=== PATIENT | male | born 1985 | race Caucasian/White ===

== ENCOUNTER 2020-01-05 10:43 | Emergency (ER) | payer OTHER, SELFPAY ==
--- NOTE | ~2020-01-05 | XR_ITS ---
EXAMINATION: XR chest 2V EXAM DATE: 01/05/2020 11:16 INDICATION: Upper left chest pain. TECHNIQUE: Frontal and lateral projections of the chest obtained and reviewed. Comparison is made to prior examination from 11/26/2019. FINDINGS: There is left midlung zone granuloma. The lungs are otherwise clear. There are no pleural effusions. The cardiomediastinal silhouette is within normal limits. There is no pneumothorax susp ected. The bones and soft tissues are unremarkable. IMPRESSION: No acute cardiopulmonary findings. Reviewed, dictated and finalized at location A. DESIGN ENGINEER
--- NOTE | 2020-01-05 10:57 | ED.CHESTPAIN ---
HPI - Chest Pain General Chief Complaint: Chest Pain Stated Complaint: chest pain Time Seen by Provider: 01/05/20 10:55 Source: patient and RN notes reviewed Mode of arrival: other Limitations: no limitations History of Present Illness HPI narrative: Pt is a 34 y/o male who presents to the ED with c/o 7/10 left sided chest pain that radiates to his left arm. Pt states his pain began at 8:30 AM today after packing some boxes at his job at [employer]. Pt describes his pain as achy and sharp. Pt notes that he started Vraylar 3 mg yesterday. He states that his boss recommended to come to the ED for further evaluation. Pt denies taking medication for his pain. He notes that he has a hx of an abnormal EKG. Pt also reports dizziness, chills, and diaphoresis, but denies SOB. MD complaint: chest pain Onset (ago): hour(s) (2) Timing of current episode: still present Onset: during exertion (packing boxes) Pain location: left chest Pain radiation: left arm Severity: moderate Pain scale (0-10): 7 Quality: aching and sharp Relieving factors: nothing Context: new medications Associated symptoms: diaphoresis and other (dizziness, chills) Treatment prior to arrival: none Related Data Home Medications Medication Instructions Recorded Confirmed bupropion HCl [Wellbutrin XL] 150 mg PO QAM 01/05/20 01/05/20 bupropion HCl [Wellbutrin XL] 300 mg PO QAM 01/05/20 01/05/20 clonazepam 01/05/20 dabigatran etexilate [Pradaxa] 150 mg PO BID 01/05/20 01/05/20 duloxetine 60 mg PO BID 01/05/20 01/05/20 esvvjtmgga-pnogooxz-fmhbkh ala 1 tablet PO DAILY 01/05/20 01/05/20 [Odefsey] montelukast [Singulair] mg 01/05/20 valproic acid 750 mg PO Q12H 01/05/20 Allergies Allergy/AdvReac Type Severity Reaction Status Date / Time No Known Allergies Allergy Unverified 11/26/19 08:13 Review of Systems Review of Systems: All systems reviewed & are unremarkable except as noted in HPI and below Constitutional: Constitutional: Reports chills Cardiovascular: Cardiovascular: Reports chest pain (left, radiates to left arm) and Reports diaphoresis Respiratory: Respiratory: Denies dyspnea Neurologic: Reports dizziness [facility] Past Medical History Medical History (Updated 01/06/20 @ 00:00 by Gonzalez De Souza) Abdominal cyst Abnormal ECG Abnormal echocardiogram Abnormal stress test Anxiety Cellulitis left leg Depression Diverticulitis DVT (deep venous thrombosis) GERD (gastroesophageal reflux disease) Hand fracture, right HIV (human immunodeficiency virus infection) Migraines Pneumonia Pulmonary embolism right lung Seizures Surgical History Surgical History (Updated 01/05/20 @ 11:12 by Daisy Huang) History of hand surgery right Social History Social History (Updated 01/05/20 @ 11:13 by Daisy Huang) Smoking packs per day: 0.5 Smoking cigarettes per day: 10.0 Smoking status: Current every day smoker Tobacco type: cigarettes Alcohol intake: current Substance use: former Substance use type: marijuana, crack/cocaine and methamphetamine Gender identity (if verbalized by the patient): Male Exam Const: General: no acute distress and well developed Orientation/consciousness: oriented to person, oriented to place, oriented to time and patient oriented x3 HENMT: Head: normocephalic Ears: external ears normal General nose exam: Normal external nose present Eyes: General: appearance normal, both eyes and all related structures Conjunctivae: conjunctivae normal Neck: Neck: normal visual inspection and full ROM Chest: Chest palpation & inspection: normal inspection of the chest and no tenderness Resp: Effort & Inspection: normal respiratory effort Auscultation: clear to auscultation bilaterally Cardio: Rate: regular rate Rhythm: regular rhythm GI: GI Palp: No abdominal tenderness and Yes Soft to palpation Skin: General skin exam: normal color and turgor normal Neuro: General: oriented to person, orie
[2020-01-05 11:02] VITALS: BP 131/80; PULSE 95; RESP 16; TEMP 36.3; O2SAT 97
--- NOTE | 2020-01-05 11:04 | ECG_ITS ---
Measurements Intervals [place] Rate: 85 P: 48 SC: 157 QRS: -25 QRSD: 106 T: 28 QT: 342 QTc: 408 Interpretive Statements SINUS RHYTHM NORMAL ECG Electronically Signed On 01-05-2020 12:38:13 PRODUCTION LEAD by Jamshid Barreto D.O.
[2020-01-05 11:06] VITALS: PULSE 95
[2020-01-05 11:22] LABS: Basophils Percent Auto 0.4 % (0.2-1.2); Eosinophils Absolute Auto 0.2 K/mm3 (0-0.3); Eosinophils Percent Auto 2.3 % (0-4.4); Hematocrit 50.8 % (42.0-52.0); Hemoglobin 16.8 g/dL (14.0-18.0); Immature Granulocyte Absolute 0.08 K/mm3 (0.00-0.031); Immature Granulocyte Percent A 0.9 % (0-0.5); Lymphocytes Percent Auto 36.6 % (18.3-44.2); Mean Corpuscular HGB Conc 33.1 g/dl (32-36); Mean Corpuscular Hemoglobin 32.5 pg (26-34); Mean Corpuscular Volume 98.3 fl (80-100); Monocytes Absolute Auto 0.8 K/mm3 (0.1-0.6); Monocytes Percent Auto 8.7 % (2.6-8.5); Neutrophils Absolute Auto 4.7 K/mm3 (1.3-6.7); Neutrophils Percent Auto 51.1 % (45.5-73.1); Platelet Count Result 257 k/mm3 (150-375); Red Blood Count 5.17 M/mm3 (4.6-6.20); Red Cell Distribution Width 13.4 % (11.5-14.5); White Blood Count 9.3 K/mm3 (4.5-10.0)
[2020-01-05 11:34] LABS: Alanine Aminotransferase 28 U/L (4-50); Albumin Level 4.9 g/dL (3.5-5.1); Alkaline Phosphatase 76 U/L (38-126); Aspartate Amino Transferase 34 U/L (17-59); Bilirubin,Total 0.6 mg/dL (0.2-1.3); Blood Urea Nitrogen 16 mg/dL (9-20); Carbon Dioxide 27 mmol/L (22-30); Chloride 98 mmol/L (98-107); Estimated CRCL calculation 113 ml/min; Estimated Glomerular Filt Rate 58; Glucose 89 mg/dL (75-110); Potassium 4.9 mmol/L (3.4-5.0); Sodium 141 mmol/L (137-145)
[2020-01-05 11:46] LABS: Troponin I < 0.012 ng/mL (0.000-0.034)
[2020-01-05 12:24] LABS: D Dimer 0.27 ug/mL (<0.48)
[2020-01-05 14:34] VITALS: BP 124/70; PULSE 76; RESP 16; O2SAT 97
--- NOTE | 2020-01-05 14:35 | PC.NURSE ---
pt states left sided cp is 0.5/10. states feels much better. requesting some psychiatric referrals upon discharge.
[2020-01-05 14:47] LABS: Troponin I < 0.012 ng/mL (0.000-0.034)
== END 2020-01-05 15:50 | disposition home or self-care (01) ==
PROVIDERS: Emergency Provider Emergency Medicine
DX: R07.9 Chest pain, unspecified (principal); F17.210 Nicotine dependence, cigarettes, uncomplicated; F41.9 Anxiety disorder, unspecified; F32.9 Major depressive disorder, single episode, unspecified; Z86.718 Personal history of other venous thrombosis and embolism; K21.9 Gastro-esophageal reflux disease without esophagitis; Z21 Asymptomatic human immunodeficiency virus [HIV] infection status; Z86.711 Personal history of pulmonary embolism
CPT/HCPCS: 36415; 71046; 80053; 84484; 85025; 85380; 93005; 99284

== ENCOUNTER 2020-02-18 19:01 | Emergency (ER) | payer BC, OTHER, SELFPAY ==
--- NOTE | ~2020-02-18 | XR_ITS ---
EXAMINATION: XR chest 2V EXAM DATE: 02/18/2020 19:39 INDICATION: Shortness of breath, pain right mid back. History pulmonary embolism. TECHNIQUE: Frontal and lateral projections of the chest obtained and reviewed. Comparison is made to prior examination from 01/05/2020. FINDINGS: There is left midlung zone granuloma. The lungs are otherwise clear. There are no pleural effusions. The cardiomediastinal silhouette is within normal limits. There is no pneumothorax susp ected. The bones and soft tissues are unremarkable. IMPRESSION: No acute cardiopulmonary findings. Reviewed, dictated and finalized at location A.
[2020-02-18 19:05] VITALS: BP 143/79; PULSE 79; RESP 18; TEMP 37; O2SAT 99
--- NOTE | 2020-02-18 19:06 | ECG_ITS ---
Measurements Intervals [place] Rate: 77 P: 20 UT: 147 QRS: -19 QRSD: 106 T: 20 QT: 363 QTc: 412 Interpretive Statements SINUS RHYTHM DELAYED PRECORDIAL R/S TRANSITION VOLTAGE CRITERIA FOR LVH ST ELEVATION IN DIFFUSE LEADS- PROBABLY EARLY REPOLARIZATION BASELINE ARTIFACT- I, III, AVR, AVL BORDERLINE ECG Electronically Signed On 02-18-2020 20:07:26 CDT by Jamshid Barreto D.O.
[2020-02-18 19:27] LABS: Basophils Percent Auto 0.4 % (0.2-1.2); Eosinophils Absolute Auto 0.2 K/mm3 (0-0.3); Hematocrit 48.9 % (42.0-52.0); Hemoglobin 15.8 g/dL (14.0-18.0); Immature Granulocyte Absolute 0.04 K/mm3 (0.00-0.031); Immature Granulocyte Percent A 0.5 % (0-0.5); Lymphocytes Absolute Auto 3.06 K/mm3 (0.9-3.2); Lymphocytes Percent Auto 39.9 % (18.3-44.2); Mean Corpuscular HGB Conc 32.3 g/dl (32-36); Mean Corpuscular Hemoglobin 32.6 pg (26-34); Mean Platelet Volume 11.1 fl (7.4-10.4); Monocytes Absolute Auto 0.6 K/mm3 (0.1-0.6); Monocytes Percent Auto 8.4 % (2.6-8.5); Neutrophils Absolute Auto 3.7 K/mm3 (1.3-6.7); Neutrophils Percent Auto 48.8 % (45.5-73.1); Platelet Count Result 239 k/mm3 (150-375); Red Blood Count 4.84 M/mm3 (4.6-6.20); Red Cell Distribution Width 13.2 % (11.5-14.5); White Blood Count 7.7 K/mm3 (4.5-10.0)
--- NOTE | 2020-02-18 19:37 | ED.BACK ---
HPI - Back Pain/Injury General Chief Complaint: Back Pain/Injury Stated Complaint: sob/pmh dvt/pe Time Seen by Provider: 02/18/20 19:06 Source: patient Mode of arrival: ambulatory Limitations: no limitations History of Present Illness HPI Narrative: This is a 34 year old male that presents to the ER for shortness of breath. Reports sudden onset this afternoon. Reports worse with exertion. Reports a history of PE. Reports pain in his right mid back that is worse with breathing. Also reports an episode of vomiting and diarrhea. Reports a productive cough that is chronic for him due to smoking. Denies fever, abdominal pain, dysuria or hematuria. Related Data Home Medications Medication Instructions Recorded Confirmed bupropion HCl [Wellbutrin XL] 150 mg PO QAM 01/05/20 02/18/20 bupropion HCl [Wellbutrin XL] 300 mg PO QAM 01/05/20 01/05/20 clonazepam 01/05/20 duloxetine 60 mg PO BID 01/05/20 01/05/20 zdazpxljta-geijisct-omycxo ala 1 tablet PO DAILY 01/05/20 01/05/20 [Odefsey] montelukast [Singulair] mg 01/05/20 valproic acid 750 mg PO Q12H 01/05/20 dabigatran etexilate [Pradaxa] mg PO 02/18/20 Allergies Allergy/AdvReac Type Severity Reaction Status Date / Time No Known Allergies Allergy Verified 02/18/20 19:11 Review of Systems Review of Systems: Narrative: CONSTITUTIONAL: Denies fever ENT: Denies rhinorrhea, congestion, sore throat CARDIOVASCULAR: Reports chest pain, and edema. RESPIRATORY: Reports cough and dyspnea. GASTROINTESTINAL: Reports nausea, vomiting and diarrhea. Denies abdominal pain. GENITOURINARY: Denies dysuria or hematuria. All systems reviewed & are unremarkable except as noted in HPI and below PMFSH Past Medical History Medical History (Updated 02/18/20 @ 21:29 by Marley Benitez PA-C) Abdominal cyst Abnormal ECG Abnormal echocardiogram Abnormal stress test Anxiety Cellulitis left leg Depression Diverticulitis DVT (deep venous thrombosis) GERD (gastroesophageal reflux disease) Hand fracture, right HIV (human immunodeficiency virus infection) Migraines Pneumonia Pulmonary embolism right lung Seizures Surgical History Surgical History (Updated 01/05/20 @ 11:12 by Daisy Huang) History of hand surgery right Social History Social History (Updated 01/05/20 @ 11:13 by Daisy Huang) Smoking packs per day: 0.5 Smoking cigarettes per day: 10.0 Smoking status: Current every day smoker Tobacco type: cigarettes Alcohol intake: current Substance use: former Substance use type: marijuana, crack/cocaine and methamphetamine Gender identity (if verbalized by the patient): Male Exam Narrative: Exam Narrative: GENERAL: Well-appearing, well-nourished, and in no acute distress. HEAD: Normocephalic, atraumatic. EYES: EOMI. ENT: Nares clear, no rhinorrhea or epistaxis. Mucous membranes moist. Oropharynx without tonsillar hypertrophy exudate or other lesions. Bilateral TMs pearly palomo non-bulging NECK: Supple. No adenopathy or masses. CHEST: Clear to auscultation. No respiratory distress. No wheezes rales or rhonchi. Tender to palpation of the right upper posterior chest wall HEART: Regular rate and rhythm. No murmur heard. Normal peripheral pulses. ABDOMEN: Soft, nontender, nondistended, normal active bowel sounds. EXTREMITIES: Normal range of motion. Mild edema of the LLE SKIN: Warm, dry, no rash. NEURO: No focal deficits. Alert and oriented x3. PSYCH: Normal mood and affect Course Vital Signs Vital signs: Vital Signs Temperature 98.6 F 02/18/20 19:05 Pulse Rate 79 02/18/20 19:05 Respiratory Rate 18 02/18/20 19:05 Blood Pressure 143/79 H 02/18/20 19:05 Pulse Oximetry 99 02/18/20 19:05 Temperature 98.6 F 02/18/20 19:05 Pulse Rate 57 L 02/18/20 20:15 Respiratory Rate 20 02/18/20 20:15 Blood Pressure 128/67 02/18/20 20:15 Pulse Oximetry 97 02/18/20 20:15 MDM - Back Pain/Injury MDM Narrative Medical decision lokesh
[2020-02-18 19:39] LABS: Prothrombin Time 13.1 Seconds (11.1-14.7)
[2020-02-18 20:10] LABS: Blood Urea Nitrogen 7 mg/dL (9-20); Calcium 9.1 mg/dL (8.4-10.2); Carbon Dioxide 25 mmol/L (22-30); Chloride 106 mmol/L (98-107); Estimated CRCL calculation 113 ml/min; Estimated Glomerular Filt Rate > 60; Glucose 103 mg/dL (75-110); Potassium 4.6 mmol/L (3.4-5.0); Sodium 139 mmol/L (137-145)
[2020-02-18 20:15] VITALS: BP 128/67; PULSE 57; RESP 20; O2SAT 97
[2020-02-18 20:18] LABS: D Dimer 0.14 ug/mL (<0.48)
[2020-02-18 20:22] LABS: Troponin I < 0.012 ng/mL (0.000-0.034)
[2020-02-18 20:24] LABS: NT Pro B Type Natriuretic Pept 33 PG/ML (5-100)
[2020-02-18 21:46] VITALS: BP 126/77; PULSE 88; RESP 18; O2SAT 98
== END 2020-02-18 21:49 | disposition home or self-care (01) ==
PROVIDERS: Physician Assistant; Emergency Provider Emergency Medicine
DX: R06.02 Shortness of breath (principal); M54.6 Pain in thoracic spine; Z86.711 Personal history of pulmonary embolism; F17.210 Nicotine dependence, cigarettes, uncomplicated; F41.9 Anxiety disorder, unspecified; F32.9 Major depressive disorder, single episode, unspecified; Z86.718 Personal history of other venous thrombosis and embolism; Z21 Asymptomatic human immunodeficiency virus [HIV] infection status; R94.31 Abnormal electrocardiogram [ECG] [EKG]
CPT/HCPCS: 36415; 71046; 80048; 83880; 84484; 85025; 85380; 85610; 85730; 93005; 96365; 99284; J0131

== ENCOUNTER 2020-02-19 20:35 | Emergency (ER) | payer BC, OTHER, SELFPAY ==
--- NOTE | ~2020-02-19 | CT_ITS ---
EXAMINATION: CTA chest PE protocol EXAM DATE: 02/19/2020 21:42 INDICATION: Shortness of breath. History pulmonary embolism. TECHNIQUE: Spiral CTA of the chest (pulmonary arteries) was performed with 100 cc Omnipaque 350 intr avenous contrast injection. Images were acquired during the pulmonary arterial phase. Coronal maxi mum intensity projection 3D-reconstructions were created by the technologist on dedicated workstation . Axial, coronal and sagittal reformatted images were reviewed. The dose-length product (DLP) for t his examination was 1018.08 mGy-cm. The exposure was tailored according to patient size (auto mA ex posure control), and iterative reconstruction (ASIR) was used as additional dose reduction technique. Comparison is made to prior examination from 08/21/2019. FINDINGS: Pulmonary arteries are well opacified and without intraluminal filling defects. No thora cic aortic dissection. Left midlung zone granulomas. Some linear basilar scarring or atelectasis. T here are no pleural or pericardial effusions. Tracheobronchial tree is patent. There is no medias tinal, hilar or axillary lymphadenopathy. There is no pneumothorax. Heart normal in size. No ev idence of coronary arterial calcification. Upper abdomen is unremarkable. There is mild thoracic s pondylosis without osteoblastic or osteolytic lesions identified. There is a hemangioma within the C6 vertebral body. IMPRESSION: 1. No pulmonary emboli or acute cardiopulmonary findings. 2. Post infectious residua. Reviewed, dictated and finalized at location G.
[2020-02-19 20:37] VITALS: BP 157/88; PULSE 100; RESP 20; TEMP 36.2; O2SAT 100
--- NOTE | 2020-02-19 20:42 | ECG_ITS ---
Measurements Intervals [place] Rate: 87 P: 48 [place]: 167 QRS: -16 QRSD: 105 T: 23 QT: 329 QTc: 397 Interpretive Statements SINUS RHYTHM ST ELEVATION IN ANTEROLAT/LAT LEADS- PROBABLY EARLY REPOLARIZATION BORDERLINE ECG Electronically Signed On 02-22-2020 14:06:24 CDT by Jamshid Barreto D.O.
--- NOTE | 2020-02-19 20:42 | ED.URI ---
HPI - URI/Sore Throat General Chief Complaint: Upper Respiratory Infection Stated Complaint: sob, flu like s/s Time Seen by Provider: 02/19/20 20:37 Source: patient Mode of arrival: ambulatory Limitations: no limitations History of Present Illness HPI Narrative: A 34 y/o male pt presents to the ED, with c/o upper respiratory Sx x 2 days. Pt notes having a cough, nausea, emesis x 4, diarrhea, mild ABD pain, worsening SOB, CP that began today and rt sided upper back pain that began last night. He notes being seen in the ED last night for the same Sx and was sent home, but he denies being tested for the flu during his last visit. Pt reports a PMHx of DVT, and HIV that he is prescribed an antiretroviral for. Patient reports his last CD4 levels were 1200. Pt notes having a smoking hx and being an occasional drinker, but denies current drug use. Patient has been compliant with antiretrovirals. He follows at [facility] with infectious disease for his HIV treatment. No recent travel. No recent sick contacts. Patient does state that there are some people at [employer], patient's workplace, who have been ill. MD elicited complaint: cough Pertinent past history: HIV Onset (ago): day(s) Consistency: progressively worsening Associated symptoms: cough, chest pain, shortness of breath (worsening), abdominal pain (mild), nausea, vomiting (emesis x 4) and diarrhea Related Data Home Medications Medication Instructions Recorded Confirmed bupropion HCl [Wellbutrin XL] 150 mg PO QAM 01/05/20 02/18/20 bupropion HCl [Wellbutrin XL] 300 mg PO QAM 01/05/20 01/05/20 clonazepam 01/05/20 duloxetine 60 mg PO BID 01/05/20 01/05/20 ncpylnjeib-ymbfmgiz-feokhi ala 1 tablet PO DAILY 01/05/20 02/19/20 [Odefsey] montelukast [Singulair] mg 01/05/20 valproic acid 750 mg PO Q12H 01/05/20 dabigatran etexilate [Pradaxa] mg PO 02/18/20 Allergies Allergy/AdvReac Type Severity Reaction Status Date / Time No Known Allergies Allergy Verified 02/19/20 20:46 Review of Systems Review of Systems: All systems reviewed & are unremarkable except as noted in HPI and below Constitutional: Constitutional: Denies chills, Denies excessive sweating and Denies fever(s) Eyes: Eyes: Denies change in vision, Denies eye discharge and Denies other (redness) ENT: Denies otalgia, Denies sore throat and Denies other (rhinorrhea, congestion) Cardiovascular: Cardiovascular: Reports chest pain, Denies pedal edema and Denies palpitations Respiratory: Respiratory: Reports cough and Reports dyspnea Gastrointestinal: Gastrointestinal: Reports abdominal pain (mild), Reports diarrhea, Reports nausea and Reports vomiting (emesis x 4) Genitourinary: Genitourinary: Denies dysuria and Denies other (hematuria) Musculoskeletal: Musculoskeletal: Reports back pain (rt sided, upper), Denies myalgias and Denies arthralgias Integumentary/Breasts: Skin/Breast: Denies pruritus and Denies rash Neurologic: Denies numbness, Denies weakness and Denies other (headache) Psychiatric: Psychiatric: Denies anxiety and Denies depression [facility] Past Medical History Medical History Abdominal cyst Abnormal ECG Abnormal echocardiogram Abnormal stress test Anxiety Cellulitis left leg Depression Diverticulitis DVT (deep venous thrombosis) GERD (gastroesophageal reflux disease) Hand fracture, right HIV (human immunodeficiency virus infection) Migraines Pneumonia Pulmonary embolism right lung Seizures Surgical History Surgical History History of hand surgery right Social History Social History Smoking packs per day: 0.5 Smoking cigarettes per day: 10.0 Smoking status: Current every day smoker Tobacco type: cigarettes Alcohol intake: current Substance use: former Substance use type: marijuana, crack/c
[2020-02-19 20:43] VITALS: BP 151/84; PULSE 95; RESP 20; O2SAT 97
[2020-02-19] MEDS: ACETAMINOPHEN 500 MG TABLET 1000 MG PO (21:01)
[2020-02-19] MEDS: SODIUM CHLORIDE 0.9% IV 1,000 ML 999 ML IV CONT (21:01)
[2020-02-19] MEDS: ONDANSETRON INJ 4 MG/2 ML VIAL IV PUSH (21:01)
[2020-02-19 21:04] LABS: Basophils Percent Auto 0.5 % (0.2-1.2); Eosinophils Absolute Auto 0.2 K/mm3 (0-0.3); Eosinophils Percent Auto 2.3 % (0-4.4); Hematocrit 46.9 % (42.0-52.0); Hemoglobin 15.5 g/dL (14.0-18.0); Immature Granulocyte Absolute 0.03 K/mm3 (0.00-0.031); Immature Granulocyte Percent A 0.4 % (0-0.5); Lymphocytes Absolute Auto 3.08 K/mm3 (0.9-3.2); Lymphocytes Percent Auto 39.3 % (18.3-44.2); Mean Corpuscular Hemoglobin 32.8 pg (26-34); Mean Corpuscular Volume 99.2 fl (80-100); Mean Platelet Volume 11.1 fl (7.4-10.4); Monocytes Absolute Auto 0.8 K/mm3 (0.1-0.6); Monocytes Percent Auto 10.2 % (2.6-8.5); Neutrophils Absolute Auto 3.7 K/mm3 (1.3-6.7); Neutrophils Percent Auto 47.3 % (45.5-73.1); Platelet Count Result 240 k/mm3 (150-375); Red Blood Count 4.73 M/mm3 (4.6-6.20); White Blood Count 7.8 K/mm3 (4.5-10.0)
[2020-02-19 21:15] LABS: Prothrombin Time 12.8 Seconds (11.1-14.7)
[2020-02-19 21:17] LABS: Partial Thromboplastin Time 41.8 SECONDS (22.3-36.8)
[2020-02-19 21:21] LABS: Alanine Aminotransferase 21 U/L (4-50); Albumin Level 4.3 g/dL (3.5-5.1); Alkaline Phosphatase 66 U/L (38-126); Aspartate Amino Transferase 27 U/L (17-59); Bilirubin,Total 0.3 mg/dL (0.2-1.3); Blood Urea Nitrogen 13 mg/dL (9-20); Calcium 9.3 mg/dL (8.4-10.2); Carbon Dioxide 25 mmol/L (22-30); Chloride 106 mmol/L (98-107); Estimated Glomerular Filt Rate > 60; Glucose 89 mg/dL (75-110); Potassium 4.3 mmol/L (3.4-5.0); Sodium 138 mmol/L (137-145)
[2020-02-19 21:28] LABS: Troponin I < 0.012 ng/mL (0.000-0.034)
[2020-02-19 21:32] VITALS: BP 123/76; PULSE 74; RESP 20; O2SAT 98
[2020-02-19 21:40] LABS: Lactate Dehydrogenase 451 U/L (313-618)
[2020-02-19 21:52] VITALS: BP 123/76; PULSE 68; RESP 20; O2SAT 100
[2020-02-19 22:44] VITALS: BP 126/79; PULSE 60; RESP 18; O2SAT 100
== END 2020-02-19 22:51 | disposition home or self-care (01) ==
PROVIDERS: Emergency Provider Emergency Medicine
DX: B34.9 Viral infection, unspecified (principal); R06.02 Shortness of breath; Z20.828 Contact with and (suspected) exposure to other viral communicable diseases; F41.9 Anxiety disorder, unspecified; F32.9 Major depressive disorder, single episode, unspecified; K21.9 Gastro-esophageal reflux disease without esophagitis; Z21 Asymptomatic human immunodeficiency virus [HIV] infection status; Z86.718 Personal history of other venous thrombosis and embolism; Z79.02 Long term (current) use of antithrombotics/antiplatelets; Z86.711 Personal history of pulmonary embolism; F17.210 Nicotine dependence, cigarettes, uncomplicated
CPT/HCPCS: 36415; 71275; 80053; 83615; 84484; 85025; 85610; 85730; 86140; 87804; 93005; 96361; 96374; 99284; A9270; J2405; J7030; Q9967

== ENCOUNTER 2020-02-23 12:24 | Emergency (ER) | payer OTHER, BC, SELFPAY ==
--- NOTE | 2020-02-23 12:37 | ED.GENADULT ---
HPI - General Adult General Chief complaint: Wound/Laceration Stated complaint: injury on left ankle Time Seen by Provider: 02/23/20 12:43 Source: patient and RN notes reviewed Mode of arrival: ambulatory Limitations: no limitations History of Present Illness HPI narrative: This is a 34 years old male presents to the office for a Tetanus booster. 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 He washed it immediately with water and alcohol. Denies any other injury or complaints. Related Data Home Medications Medication Instructions Recorded Confirmed bupropion HCl [Wellbutrin XL] 150 mg PO QAM 01/05/20 02/18/20 bupropion HCl [Wellbutrin XL] 300 mg PO QAM 01/05/20 01/05/20 clonazepam 01/05/20 duloxetine 60 mg PO BID 01/05/20 01/05/20 xeynddacfh-snbfupst-auiqsa ala 1 tablet PO DAILY 01/05/20 02/19/20 [Odefsey] montelukast [Singulair] mg 01/05/20 valproic acid 750 mg PO Q12H 01/05/20 dabigatran etexilate [Pradaxa] mg PO 02/18/20 Allergies Allergy/AdvReac Type Severity Reaction Status Date / Time No Known Allergies Allergy Verified 02/19/20 20:46 Review of Systems Review of Systems: Narrative: CONSTITUTIONAL: Denies fever CARDIOVASCULAR: Denies chest pain RESPIRATORY: Denies dyspnea GASTROINTESTINAL: Denies nausea SKIN: Reports wound on his left ankle MUSCULOSKELETAL: Denies bones pain NEUROLOGIC: Denies numbness PMFSH Past Medical History Medical History Abdominal cyst Abnormal ECG Abnormal echocardiogram Abnormal stress test Anxiety Cellulitis left leg Depression Diverticulitis DVT (deep venous thrombosis) GERD (gastroesophageal reflux disease) Hand fracture, right HIV (human immunodeficiency virus infection) Migraines Pneumonia Pulmonary embolism right lung Seizures Surgical History Surgical History History of hand surgery right Social History Social History Smoking packs per day: 0.5 Smoking cigarettes per day: 10.0 Smoking status: Current every day smoker Tobacco type: cigarettes Alcohol intake: current Substance use: former Substance use type: marijuana, crack/cocaine and methamphetamine Gender identity (if verbalized by the patient): Male Comments At time of signature, I agree with nursing past medical, surgical, social and family history. There is no relevant family history pertinent to the presenting complaint. Exam Narrative: Exam Narrative: GENERAL: This is a well-nourished, well-developed patient, in no apparent distress. NEURO: awake, alert, and oriented to person, place and time. There were no obvious focal neurologic abnormalities. Steady gait EXTREMITIES: Normal range of motion. No edema. Moises Coma Scale Eye Opening: Spontaneous 4 Moises Coma Scale Motor: Obeys Commands 6 Jameson Coma Scale Verbal: Oriented 5 Skin: Full body images: 1. ~1.5cm horizontal skin abrasion with pink base; no gaping with a small puncture wound without tenderness to palpation or lymphandenitis. Course Vital Signs Vital signs: Vital Signs Temperature 97.0 F L 02/23/20 12:42 Pulse Rate 80 02/23/20 12:42 Respiratory Rate 20 02/23/20 12:42 Blood Pressure 118/68 02/23/20 12:42 Pulse Oximetry 98 02/23/20 12:42 Temperature 97.0 F L 02/23/20 12:42 Pulse Rate 80 02/23/20 12:42 Respiratory Rate 20 02/23/20 12:42 Blood Pressure 118/68 02/23/20 12:42 Pulse Oximetry 98 02/23/20 12:42 Medical Decision Making MDM Narrative Medical decision making narrative: wound care instruction provide. Discharge instructions reviewed with patient, as well as provided in writing per nursing staff. The instructions also include specific and strict return/GO TO THE ER as well as f/u inf
[2020-02-23 12:42] VITALS: BP 118/68; PULSE 80; RESP 20; TEMP 36.1; O2SAT 98
[2020-02-23] MEDS: TETANUS,DIPHTHERIA,AC PERTUSSIS ADULT 0.5 ML (ADACEL) IM (12:57)
== END 2020-02-23 13:20 | disposition home or self-care (01) ==
PROVIDERS: Emergency Provider Nurse Practitioner
DX: S90.512A Abrasion, left ankle, initial encounter (principal); W31.89XA Contact with other specified machinery, initial encounter; Y99.0 Civilian activity done for income or pay; Z23 Encounter for immunization; F41.9 Anxiety disorder, unspecified; F32.9 Major depressive disorder, single episode, unspecified; Z86.718 Personal history of other venous thrombosis and embolism; K21.9 Gastro-esophageal reflux disease without esophagitis; Z86.711 Personal history of pulmonary embolism; Z21 Asymptomatic human immunodeficiency virus [HIV] infection status
CPT/HCPCS: 90471; 90715; 99212; G0463

== ENCOUNTER 2020-04-06 13:13 | Emergency (ER) | payer BC, SELFPAY ==
[2020-04-06] VITALS (7 sets, daily range): BP systolic 123–159; BP diastolic 65–81; PULSE 64–78; RESP 14–18; TEMP 36.3; O2SAT 98–99
--- NOTE | ~2020-04-06 | XR_ITS ---
EXAMINATION: XR chest 1V portable DATE: 04/06/2020 14:10 INDICATION: Cough. TECHNIQUE: A single frontal view of the chest was obtained. COMPARISON: Chest 2 views 02/18/2020, chest CT 02/19/2020 FINDINGS: A calcified left lung nodule and calcified left hilar lymph nodes are consistent with old g ranulomatous disease. No pleural effusion or pneumothorax. The heart size is normal. IMPRESSION: 1. No acute cardiopulmonary disease. Reviewed, dictated and finalized at location E.
--- NOTE | 2020-04-06 14:00 | ED.GENADULT ---
HPI - General Adult General Chief complaint: Unspecified Stated complaint: confirmed case of covid at work, sick now. Time Seen by Provider: 04/06/20 13:37 Source: patient Mode of arrival: ambulatory Limitations: no limitations History of Present Illness HPI narrative: This patient is a 34 year old male with h/o HIV who presents to be evaluated for possible COVID symptoms. Patient states he has been intermittently sick for 1 month. He has been checked twice for COVID with negative results. He was sent to ER today because yesterday he has low grade fever of 99 F with nausea, vomiting and diarrhea. He reports he had 2 episodes of emesis with small clots yesterday. He reports having small episode emesis this morning but he denies having blood in emesis today. He denies melena or abdominal pain. He does take pradaxa for history of DVT/PE. Patient also reports cough but he denies chest pain or shortness of breath. He states he works in an environment with positive cases of COVID. Onset (ago): day(s) Related Data Home Medications Medication Instructions Recorded Confirmed bupropion HCl [Wellbutrin XL] 150 mg PO QAM 01/05/20 02/23/20 bupropion HCl [Wellbutrin XL] 300 mg PO QAM 01/05/20 02/23/20 clonazepam 2 mg PO BID 01/05/20 02/23/20 duloxetine 60 mg PO BID 01/05/20 02/23/20 atpxcrjigw-bhwmbqjn-gqdpnm ala 1 tablet PO DAILY 01/05/20 02/23/20 [Odefsey] montelukast [Singulair] 10 mg PO DAILY 01/05/20 02/23/20 valproic acid 750 mg PO Q12H 01/05/20 02/23/20 dabigatran etexilate [Pradaxa] 150 mg PO BID 02/18/20 02/23/20 dolutegravir [Tivicay] mg 04/06/20 Allergies Allergy/AdvReac Type Severity Reaction Status Date / Time No Known Allergies Allergy Verified 04/06/20 13:35 Review of Systems Review of Systems: All systems reviewed & are unremarkable except as noted in HPI and below Constitutional: Constitutional: Reports fever(s) ENT: Reports mouth pain Respiratory: Respiratory: Reports cough and Denies dyspnea Gastrointestinal: Gastrointestinal: Reports abdominal pain, Reports diarrhea, Reports nausea and Reports vomiting PMFSH Social History Social History Smoking packs per day: 0.5 Smoking cigarettes per day: 10.0 Smoking status: Current every day smoker Tobacco type: cigarettes Alcohol intake: current Substance use: former Substance use type: marijuana, crack/cocaine and methamphetamine Gender identity (if verbalized by the patient): Male Exam Narrative: Exam Narrative: GENERAL: Well-appearing, well-nourished, and in no acute distress. HEAD: Normocephalic, atraumatic EYES: PERRLA and EOMI, conjunctiva clear without discharge EARS: TM's clear bilaterally without erythema or dullness NOSE: Nares clear, no rhinorrhea or epistaxis THROAT:Mucous membranes moist, Oropharynx normal without erythema, exudate, peritonsillar swelling or fluctuance NECK: Supple, without lymphadenopathy or mass RESPIRATORY: No respiratory distress, Airway patent, Respirations non-labored, Clear to auscultation without rales, rhonchi or wheeze HEART: Regular rate and rhythm. No murmur heard. Normal peripheral pulses. ABDOMEN: Soft, nontender, nondistended, normal active bowel sounds. No masses. No rebound or guarding, No organomegaly. guaic negative EXTREMITIES: No edema, normal strength with full range of motion. SKIN: Warm, dry, normal color without rash NEURO: Alert and oriented x3. CN 2-12 grossly intact. No focal deficits. PSYCH: Normal mood and affect. Course Reevaluation(s) Reevaluation #1: I Discussed with patient that labs are unremarkable other than mild anemia. He is not orthostatic. His vitals are stable . I discussed with patient about observation in hospital but he states he can not stay. Date: 04/06/20 Time: 17:32 Consultations Consultation #1: I spoke with patient's primary care physician Dr. Ceja. I discussed patient states he ca
[2020-04-06 14:49] LABS: Basophils Percent Auto 0.6 % (0.2-1.2); Eosinophils Absolute Auto 0.1 K/mm3 (0-0.3); Eosinophils Percent Auto 2.8 % (0-4.4); Hematocrit 40.3 % (42.0-52.0); Hemoglobin 13.4 g/dL (14.0-18.0); Immature Granulocyte Absolute 0.03 K/mm3 (0.00-0.031); Immature Granulocyte Percent A 0.6 % (0-0.5); Lymphocytes Absolute Auto 1.71 K/mm3 (0.9-3.2); Lymphocytes Percent Auto 33.9 % (18.3-44.2); Mean Corpuscular HGB Conc 33.3 g/dl (32-36); Mean Corpuscular Hemoglobin 32.9 pg (26-34); Monocytes Absolute Auto 0.6 K/mm3 (0.1-0.6); Monocytes Percent Auto 10.9 % (2.6-8.5); Neutrophils Absolute Auto 2.6 K/mm3 (1.3-6.7); Neutrophils Percent Auto 51.2 % (45.5-73.1); Platelet Count Result 195 k/mm3 (150-375); Red Blood Count 4.07 M/mm3 (4.6-6.20)
[2020-04-06 14:56] LABS: Prothrombin Time 12.4 Seconds (11.1-14.7)
[2020-04-06 14:57] LABS: Partial Thromboplastin Time 33.4 SECONDS (22.3-36.8)
[2020-04-06 15:01] LABS: Lactic Acid Reflex 1.6 mmol/L (0.7-2.1)
[2020-04-06 15:02] LABS: Add Urine Microscopic? YES; Amorphous Sediment Urine Moderate; Appearance Urine Cloudy (Clear); Bilirubin Urine Negative (Negative); Blood Urine Negative (Negative); Color Urine Yellow (Yellow); Glucose Urine UA Negative (Negative); Ketones Urine Negative (Negative); Leukocyte Esterase Ur Negative LEU/UL (Negative); Nitrate Urine Negative (Negative); Protein Urine Negative (Negative); RBC Urine 0-2 /hpf (0-2); Specific Grav Ur 1.015 (1.001-1.035)
[2020-04-06 15:05] LABS: Alanine Aminotransferase 31 U/L (4-50); Alkaline Phosphatase 58 U/L (38-126); Aspartate Amino Transferase 38 U/L (17-59); Bilirubin,Total 0.2 mg/dL (0.2-1.3); Blood Urea Nitrogen 11 mg/dL (9-20); CRP 3.6 mg/dL (<1.0); Calcium 9.1 mg/dL (8.4-10.2); Carbon Dioxide 32 mmol/L (22-30); Chloride 104 mmol/L (98-107); Estimated CRCL calculation 110 ml/min; Estimated Glomerular Filt Rate > 60; Glucose 98 mg/dL (75-110); Lactate Dehydrogenase 421 U/L (313-618); Magnesium 2.3 mg/dL (1.6-2.3); Potassium 3.8 mmol/L (3.4-5.0); Sodium 141 mmol/L (137-145)
[2020-04-06 15:08] LABS: D Dimer 0.27 ug/mL (<0.48)
[2020-04-06] MEDS: LACTATED RINGERS 1,000 ML 999 ML IV CONT (15:32)
[2020-04-06] MEDS: PANTOPRAZOLE SODIUM IV 40 MG VIAL IV PUSH (15:32)
[2020-04-06] MEDS: ONDANSETRON INJ 4 MG/2 ML VIAL IV PUSH (15:33)
--- NOTE | 2020-04-06 17:27 | PC.NURSE ---
Called lab to add on Hgb and Hct.
[2020-04-06 17:51] LABS: Hematocrit 40.2 % (42.0-52.0); Hemoglobin 13.4 g/dL (14.0-18.0)
[2020-04-07 13:22] LABS: SARS-CoV-2 RNA PCR Negative
== END 2020-04-06 18:05 | disposition home or self-care (01) ==
PROVIDERS: Emergency Provider General Practice; PCP Internal Medicine
DX: Z20.828 Contact with and (suspected) exposure to other viral communicable diseases (principal); K92.0 Hematemesis; Z21 Asymptomatic human immunodeficiency virus [HIV] infection status; F17.210 Nicotine dependence, cigarettes, uncomplicated
CPT/HCPCS: 36415; 71045; 80053; 81001; 83605; 83615; 83735; 85014; 85018; 85025; 85380; 85610; 85730; 86140; 87040; 87635; 96361; 96374; 96375; 99284; C9113; C9803; J2405; J7120; U0003

== ENCOUNTER 2020-04-17 09:39 | Emergency (ER) | payer BC, SELFPAY ==
--- NOTE | ~2020-04-17 | XR_ITS ---
XR ankle LT min 3V, XR foot LT min 3V 04/17/2020 10:09 INDICATION: Left foot and ankle pain PROCEDURE: 4 views left ankle and 4 views left foot COMPARISON: No prior studies for comparison. FINDINGS: Fracture, dislocation or subluxation is not identified. Ankle mortise intact. The soft tiss ues appear within normal limits. No foreign bodies are identified. IMPRESSION: 1: NO ACUTE BONE OR JOINT ABNORMALITY IDENTIFIED. Reviewed, dictated and finalized at location A. IMPRESSION: 1: NO ACUTE BONE OR JOINT ABNORMALITY IDENTIFIED.
[2020-04-17 09:45] VITALS: BP 128/84; PULSE 89; RESP 17; TEMP 36.8; O2SAT 96
--- NOTE | 2020-04-17 10:46 | ED.LOWEXIN ---
HPI - Extremity Injury (Lower) General Chief Complaint: Extremity Injury, Lower Stated Complaint: L FOOT PAIN S/P WALKING Time Seen by Provider: 04/17/20 10:46 Source: patient Mode of arrival: ambulatory Limitations: no limitations History of Present Illness HPI Narrative: Patient is a 35-year-old male with a history of HIV currently on antiretrovirals, who presents for evaluation of left ankle pain. Pain is described as sharp in nature, worsened with exertion. Patient states he was walking on the sidewalk 2 days ago when he suddenly felt a pop in his left ankle. Patient states he did not trip over anything, he did not roll his ankle. 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 Patient denies numbness, he reports swelling without redness. There is worsened pain with movement of the joint. No knee or hip pain. Related Data Home Medications Medication Instructions Recorded Confirmed bupropion HCl [Wellbutrin XL] 150 mg PO QAM 01/05/20 02/23/20 bupropion HCl [Wellbutrin XL] 300 mg PO QAM 01/05/20 02/23/20 clonazepam 2 mg PO BID 01/05/20 02/23/20 duloxetine 60 mg PO BID 01/05/20 02/23/20 saxewbtvnh-pvvwhuvz-sxirue ala 1 tablet PO DAILY 01/05/20 02/23/20 [Odefsey] montelukast [Singulair] 10 mg PO DAILY 01/05/20 02/23/20 valproic acid 750 mg PO Q12H 01/05/20 02/23/20 dabigatran etexilate [Pradaxa] 150 mg PO BID 02/18/20 02/23/20 dolutegravir [Tivicay] mg 04/06/20 Allergies Allergy/AdvReac Type Severity Reaction Status Date / Time No Known Allergies Allergy Verified 04/17/20 09:49 Review of Systems Review of Systems: Narrative: CONSTITUTIONAL: Denies fever CARDIOVASCULAR: Denies chest pain RESPIRATORY: Denies cough or dyspnea. GASTROINTESTINAL: Denies abdominal pain SKIN: Denies rash MUSCULOSKELETAL: Denies back pain, reports left ankle pain NEUROLOGIC: Denies headache PMFSH Past Medical History Medical History Abdominal cyst Abnormal ECG Abnormal echocardiogram Abnormal stress test Anxiety Cellulitis left leg Depression Diverticulitis DVT (deep venous thrombosis) GERD (gastroesophageal reflux disease) Hand fracture, right HIV (human immunodeficiency virus infection) Migraines Pneumonia Pulmonary embolism right lung Seizures Surgical History Surgical History History of hand surgery right Social History Social History Smoking packs per day: 0.5 Smoking cigarettes per day: 10.0 Smoking status: Current every day smoker Tobacco type: cigarettes Alcohol intake: current Substance use: former Substance use type: marijuana, crack/cocaine and methamphetamine Gender identity (if verbalized by the patient): Male Exam Narrative: Exam Narrative: GENERAL: Awake, alert, conversant HEAD: Normocephalic, atraumatic. EYES: PERRLA and EOMI. ENT: Nares clear, no rhinorrhea or epistaxis. Mucous membranes moist. NECK: Supple. CHEST: No respiratory distress, breathing even and non labored HEART: Regular rate, sinus rhythm ABDOMEN:Non distended, non tender EXTREMITIES: Decreased range of motion in the left ankle due to pain, patient does have passive flexion and extension without much limitation. There is lateral ankle edema, tenderness to the lateral malleolus, no ecchymosis, no erythema. No warmth. DP pulses 2+. SKIN: Warm, dry, no rash. NEURO:No focal deficits. Alert and oriented x3 Course Vital Signs Vital signs: Vital Signs Temperature 36.8 C 04/17/20 09:45 Pulse Rate 89 04/17/20 09:45 Respiratory Rate 17 04/17/20 09:45 Blood Pressure 128/84 04/17/20 09:45 Pulse Oximetry 96 04/17/20 09:45 Bailey
[2020-04-17 11:29] VITALS: BP 128/80; PULSE 80; RESP 20; O2SAT 99
== END 2020-04-17 11:30 | disposition home or self-care (01) ==
PROVIDERS: Emergency Provider Emergency Medicine; PCP Internal Medicine
DX: M79.9 Soft tissue disorder, unspecified (principal); S93.402A Sprain of unspecified ligament of left ankle, initial encounter; F41.9 Anxiety disorder, unspecified; F32.9 Major depressive disorder, single episode, unspecified; Z86.718 Personal history of other venous thrombosis and embolism; K21.9 Gastro-esophageal reflux disease without esophagitis; Z21 Asymptomatic human immunodeficiency virus [HIV] infection status; Z86.711 Personal history of pulmonary embolism; Z79.02 Long term (current) use of antithrombotics/antiplatelets; F17.210 Nicotine dependence, cigarettes, uncomplicated; X58.XXXA Exposure to other specified factors, initial encounter
CPT/HCPCS: 73610; 73630; 99283

== ENCOUNTER 2020-04-23 12:39 | Emergency (ER) | payer BC, SELFPAY ==
--- NOTE | ~2020-04-23 | XR_ITS ---
EXAMINATION: XR chest 2V 04/23/2020 13:54 INDICATION: Shortness of breath, fever and cough PROCEDURE: 2 view chest COMPARISON: Comparison to multiple prior studies sequentially, with oldest reviewed study dated 11/26. FINDINGS: The lungs are clear. The cardiomediastinal silhouette is within normal limits. There are no pleural effusions. There is no pneumothorax suspected. Calcified granuloma left mid thorax. IMPRESSION: 1: NO ACUTE CARDIOPULMONARY DISEASE. Reviewed, dictated and finalized at location A.
[2020-04-23 12:45] VITALS: BP 149/96; PULSE 96; RESP 17; TEMP 37.1; O2SAT 99
[2020-04-23 12:56] VITALS: BP 140/73; PULSE 105; RESP 16; O2SAT 96
--- NOTE | 2020-04-23 13:49 | ED.GENADULT ---
HPI - General Adult General Chief complaint: Fever Stated complaint: FEVER Time Seen by Provider: 04/23/20 13:11 History of Present Illness HPI narrative: Patient is a 35 y/o male complaining of fever starting today. He states that he had an scheduled appointment with a plastic surgeon today for left foot pain. However, when he went to his appointment, he was noted to have a fever of 100.7. He was not seen due to his fever. He contacted his PCP and was told to come to ED for evaluation. He denies any cough, SOB or dysuria. He has some mild epigastric abdominal pain which he attributed to change of medication. He has no vomiting or diarrhea. Related Data Home Medications Medication Instructions Recorded Confirmed bupropion HCl [Wellbutrin XL] 150 mg PO QAM 01/05/20 02/23/20 bupropion HCl [Wellbutrin XL] 300 mg PO QAM 01/05/20 02/23/20 clonazepam 2 mg PO BID 01/05/20 02/23/20 duloxetine 60 mg PO BID 01/05/20 02/23/20 taupaylxwv-agspkdkz-dxxzcm ala 1 tablet PO DAILY 01/05/20 02/23/20 [Odefsey] montelukast [Singulair] 10 mg PO DAILY 01/05/20 02/23/20 valproic acid 750 mg PO Q12H 01/05/20 02/23/20 dabigatran etexilate [Pradaxa] 150 mg PO BID 02/18/20 02/23/20 dolutegravir [Tivicay] mg 04/06/20 Allergies Allergy/AdvReac Type Severity Reaction Status Date / Time No Known Allergies Allergy Verified 04/23/20 12:56 Review of Systems Constitutional: Constitutional: Denies chills, Reports fever(s), Denies headache(s) and Denies weakness Eyes: Eyes: Denies blurry vision ENT: Denies headache(s) and Denies neck pain Cardiovascular: Cardiovascular: Denies chest pain and Denies dyspnea Respiratory: Respiratory: Denies cough and Denies dyspnea Gastrointestinal: Gastrointestinal: Reports abdominal pain, Denies diarrhea, Denies nausea and Denies vomiting Genitourinary: Genitourinary: Denies hematuria and Denies dysuria Musculoskeletal: Musculoskeletal: Denies back pain, Reports arthralgias (left foot pain) and Denies neck pain Neurologic: Denies headache(s) and Denies weakness [facility] Past Medical History Medical History Abdominal cyst Abnormal ECG Abnormal echocardiogram Abnormal stress test Anxiety Cellulitis left leg Depression Diverticulitis DVT (deep venous thrombosis) GERD (gastroesophageal reflux disease) Hand fracture, right HIV (human immunodeficiency virus infection) Migraines Pneumonia Pulmonary embolism right lung Seizures Surgical History Surgical History History of hand surgery right Social History Social History Smoking packs per day: 0.5 Smoking cigarettes per day: 10.0 Smoking status: Current every day smoker Tobacco type: cigarettes Alcohol intake: current Substance use: former Substance use type: marijuana, crack/cocaine and methamphetamine Gender identity (if verbalized by the patient): Male Exam Const: General: no acute distress and well developed Orientation/consciousness: oriented to person, oriented to place, oriented to time and patient oriented x3 HENMT: Head: normocephalic Ears: external ears normal General nose exam: Normal external nose present Eyes: General: appearance normal, both eyes and all related structures Conjunctivae: conjunctivae normal Neck: Neck: normal visual inspection and full ROM Chest: Chest palpation & inspection: normal inspection of the chest and no tenderness Resp: Effort & Inspection: normal respiratory effort Auscultation: clear to auscultation bilaterally Cardio: Rate: regular rate Rhythm: regular rhythm GI: GI Palp: No abdominal tenderness and Yes Soft to palpation Skin: General skin exam: normal color and turgor normal Neuro: General: oriented to person, oriented to place, oriented to time and patient oriented x3 Cognition (Neuro): normal cognition Extrem: Ge
[2020-04-23 14:41] LABS: Add Urine Microscopic? NO; Appearance Urine Clear (Clear); Bilirubin Urine Negative (Negative); Blood Urine Negative (Negative); Color Urine Yellow (Yellow); Glucose Urine UA Negative (Negative); Ketones Urine Negative (Negative); Leukocyte Esterase Ur Negative LEU/UL (Negative); Nitrate Urine Negative (Negative); Protein Urine Negative (Negative); Urobilinogen Urine Negative mg/dL (<2.0)
[2020-04-23 14:42] LABS: Specific Grav Ur 1.031 (1.001-1.035)
[2020-04-23 14:46] LABS: Basophils Absolute Auto 0.1 K/mm3 (0.0-0.1); Basophils Percent Auto 0.6 % (0.2-1.2); Eosinophils Absolute Auto 0.2 K/mm3 (0-0.3); Hematocrit 49.4 % (42.0-52.0); Hemoglobin 16.9 g/dL (14.0-18.0); Immature Granulocyte Absolute 0.08 K/mm3 (0.00-0.031); Immature Granulocyte Percent A 0.8 % (0-0.5); Lymphocytes Percent Auto 27.7 % (18.3-44.2); Mean Corpuscular HGB Conc 34.2 g/dl (32-36); Mean Corpuscular Hemoglobin 33.3 pg (26-34); Mean Corpuscular Volume 97.4 fl (80-100); Monocytes Percent Auto 9.9 % (2.6-8.5); Neutrophils Absolute Auto 5.8 K/mm3 (1.3-6.7); Platelet Count Result 245 k/mm3 (150-375); Red Blood Count 5.07 M/mm3 (4.6-6.20); Red Cell Distribution Width 13.3 % (11.5-14.5); White Blood Count 9.8 K/mm3 (4.5-10.0)
[2020-04-23 14:51] LABS: Lipase 93 U/L (23-300)
[2020-04-23 16:00] VITALS: RESP 16
[2020-04-23 16:06] LABS: Alanine Aminotransferase 24 U/L (4-50); Albumin Level 4.5 g/dL (3.5-5.1); Alkaline Phosphatase 82 U/L (38-126); Aspartate Amino Transferase 26 U/L (17-59); Bilirubin,Total 0.3 mg/dL (0.2-1.3); Blood Urea Nitrogen 16 mg/dL (9-20); Calcium 9.4 mg/dL (8.4-10.2); Carbon Dioxide 24 mmol/L (22-30); Chloride 102 mmol/L (98-107); Estimated CRCL calculation 106 ml/min; Estimated Glomerular Filt Rate > 60; Glucose 105 mg/dL (75-110); Potassium 4.1 mmol/L (3.4-5.0); Sodium 136 mmol/L (137-145)
[2020-04-23 16:49] VITALS: BP 130/72; PULSE 76; RESP 21; TEMP 36.6; O2SAT 98
[2020-04-24 14:41] LABS: SARS-CoV-2 RNA PCR Negative
== END 2020-04-23 16:50 | disposition home or self-care (01) ==
PROVIDERS: Emergency Provider Emergency Medicine; PCP Internal Medicine
DX: R50.9 Fever, unspecified (principal); Z20.828 Contact with and (suspected) exposure to other viral communicable diseases; F41.9 Anxiety disorder, unspecified; F32.9 Major depressive disorder, single episode, unspecified; Z86.718 Personal history of other venous thrombosis and embolism; K21.9 Gastro-esophageal reflux disease without esophagitis; Z86.711 Personal history of pulmonary embolism; Z21 Asymptomatic human immunodeficiency virus [HIV] infection status; Z79.02 Long term (current) use of antithrombotics/antiplatelets
CPT/HCPCS: 36415; 71046; 80053; 81003; 83690; 85025; 87635; 99283; C9803; U0003

== ENCOUNTER 2020-05-10 17:06 | Emergency (ER) | payer BC, SELFPAY ==
--- NOTE | ~2020-05-10 | XR_ITS ---
EXAMINATION: XR foot LT min 3V DATE: 05/10/2020 18:10 INDICATION: Left foot pain TECHNIQUE: Dorsoplantar, lateral, and 2 oblique views of the left foot were obtained. COMPARISON: 04/17/2020 FINDINGS: There is no fracture, dislocation, or subluxation. The bones, soft tissues, and joint space s are normal. IMPRESSION: 1. No acute osseous abnormality. Reviewed, dictated and finalized at location A.
[2020-05-10 17:53] VITALS: BP 124/83; PULSE 106; RESP 16; TEMP 36.7; O2SAT 97
--- NOTE | 2020-05-10 18:41 | ED.GENADULT ---
HPI - General Adult General Chief complaint: Extremity Injury, Lower Stated complaint: foot injury/pain Time Seen by Provider: 05/10/20 18:29 Source: patient Mode of arrival: ambulatory Limitations: no limitations History of Present Illness HPI narrative: 35-year-old male patient presents to the [facility] with complaints of right foot pain. Patient states he was seen here about 2 weeks ago. Patient states he was walking and felt a pop to his left foot. Was nauseous states he came in to be seen and had an x-ray done and was told that the x-ray was fine. Patient states he was given Ortho follow-up and states that he has an appointment with Ortho doctor on Thursday. Patient states that yesterday he was out walking 9 miles a day was fine. Patient states this morning with increase in pain, and swelling to the left foot. Patient states he currently is on Pradaxa and does have issues with blood clotting especially in the left leg as well as large patient denies any chest pain or shortness of breath. Patient does have a history of HIV. Patient denies any new injury to left foot that he is aware of. Related Data Home Medications Medication Instructions Recorded Confirmed bupropion HCl [Wellbutrin XL] 150 mg PO QAM 01/05/20 02/23/20 bupropion HCl [Wellbutrin XL] 300 mg PO QAM 01/05/20 02/23/20 clonazepam 2 mg PO BID 01/05/20 02/23/20 duloxetine 60 mg PO BID 01/05/20 02/23/20 gzkldacodb-azydbahn-enirpj ala 1 tablet PO DAILY 01/05/20 02/23/20 [Walterefsey] montelukast [Singulair] 10 mg PO DAILY 01/05/20 02/23/20 valproic acid 750 mg PO Q12H 01/05/20 02/23/20 dabigatran etexilate [Pradaxa] 150 mg PO BID 02/18/20 02/23/20 dolutegravir [Tivicay] mg 04/06/20 Allergies Allergy/AdvReac Type Severity Reaction Status Date / Time No Known Allergies Allergy Verified 04/23/20 12:56 Review of Systems Review of Systems: Narrative: CONSTITUTIONAL: Denies fever, chills, or sweats. EYES: Denies visual changes, redness, or discharge. ENT: Denies rhinorrhea, congestion, sore throat, or otalgia. CARDIOVASCULAR: Denies chest pain, palpitations, or edema. RESPIRATORY: Denies cough or dyspnea. GASTROINTESTINAL: Denies abdominal pain, nausea, vomiting, or diarrhea. GENITOURINARY: Denies dysuria or hematuria. SKIN: Denies rash or itching. MUSCULOSKELETAL: Denies back pain, joint pain, or myalgia. Positive left foot pain NEUROLOGIC: Denies headache, numbness, or weakness. PSYCHIATRIC: Denies anxiety or depression. COUNTS INCLUDE 234 BEDS AT THE [facility] Past Medical History Medical History Abdominal cyst Abnormal ECG Abnormal echocardiogram Abnormal stress test Anxiety Cellulitis left leg Depression Diverticulitis DVT (deep venous thrombosis) GERD (gastroesophageal reflux disease) Hand fracture, right HIV (human immunodeficiency virus infection) Migraines Pneumonia Pulmonary embolism right lung Seizures Surgical History Surgical History History of hand surgery right Social History Social History Smoking packs per day: 0.5 Smoking cigarettes per day: 10.0 Smoking status: Current every day smoker Tobacco type: cigarettes Alcohol intake: current Substance use: former Substance use type: marijuana, crack/cocaine and methamphetamine Gender identity (if verbalized by the patient): Male Comments At the time of my signature I agree with nursing past medical history, surgical, social, and family history. There is no relevant family history pertinent to the presenting complaint. Exam Narrative: Exam Narrative: GENERAL: Well-appearing, well-nourished, and in no acute distress. HEAD: Normocephalic, atraumatic. EYES: PERRLA and EOMI. ENT: Nares clear, no rhinorrhea or epistaxis. Mucous membranes moist. NECK: Supple. No lymphadenopathy CHEST: Clear to auscultation. No respiratory distress. HE
[2020-05-10] MEDS: traMADol HCL 50 MG TABLET PO (19:27)
[2020-05-10 20:12] VITALS: BP 146/64; PULSE 80; RESP 19; TEMP 36.3; O2SAT 100
== END 2020-05-10 20:13 | disposition home or self-care (01) ==
PROVIDERS: Emergency Provider Nurse Practitioner Family
DX: S93.692A Other sprain of left foot, initial encounter (principal); F41.9 Anxiety disorder, unspecified; F32.9 Major depressive disorder, single episode, unspecified; Z86.718 Personal history of other venous thrombosis and embolism; K21.9 Gastro-esophageal reflux disease without esophagitis; Z21 Asymptomatic human immunodeficiency virus [HIV] infection status; Z86.711 Personal history of pulmonary embolism; F17.210 Nicotine dependence, cigarettes, uncomplicated; Z79.02 Long term (current) use of antithrombotics/antiplatelets
CPT/HCPCS: 73630; 99283; A9270

== ENCOUNTER 2020-05-29 18:49 | Emergency (ER) | payer BC, SELFPAY ==
--- NOTE | ~2020-05-29 | XR_ITS ---
EXAMINATION: XR chest 1V portable DATE: 05/29/2020 20:48 INDICATION: Cough and shortness of breath and fever. TECHNIQUE: A single frontal view of the chest was obtained. COMPARISON: Chest 2 views 04/23/2020 FINDINGS: A calcified left lung nodule and calcified left hilar lymph nodes are consistent with old g ranulomatous disease. There is mild atelectasis in the midlung zones. No pleural effusion or pneumoth orax. The heart size is normal. IMPRESSION: 1. Mild atelectasis in the midlung zones. Reviewed, dictated and finalized at location A.
[2020-05-29 18:54] VITALS: BP 169/84; PULSE 96; RESP 18; TEMP 36.8; O2SAT 98
[2020-05-29 19:47] VITALS: RESP 16; O2SAT 97
--- NOTE | 2020-05-29 19:57 | ECG_ITS ---
Measurements Intervals [place] Rate: 86 P: 35 MT: 149 QRS: -30 QRSD: 106 T: -1 QT: 358 QTc: 430 Interpretive Statements SINUS RHYTHM POSSIBLE LEFT ATRIAL ENLARGEMENT INCOMPLETE RIGHT BUNDLE BRANCH BLOCK POOR R WAVE PROGRESSION, ANTERIOR LEADS MINIMAL Q WAVES- HIGH LATERAL LEADS BORDERLINE ST-T WAVE ABNORMALITY- INFERIOR LEADS BORDERLINE ECG Electronically Signed On 05-29-2020 20:57:59 CDT by Jamshid Barreto D.O.
--- NOTE | 2020-05-29 19:59 | ED.GENADULT ---
HPI - General Adult General Chief complaint: Unspecified Stated complaint: fever, neck pain, v/d, covid exposure Time Seen by Provider: 05/29/20 19:39 Source: patient Mode of arrival: ambulatory Limitations: no limitations History of Present Illness HPI narrative: This patient is a 35 year old male with history of HIV who presents for evaluation after COVID exposure. He states yesterday he started to feel unwell. He developed cough productive with phlegm, nausea, vomiting and dizziness. He reports he feels lightheadedness when he coughs. He denies chest pain or sob. He denies abdominal pain. He reports low grade temperature this morning. He has not taken anything for pain. He reports his aunt was exposed to COVID. Onset (ago): day(s) Related Data Home Medications Medication Instructions Recorded Confirmed bupropion HCl [Wellbutrin XL] 150 mg PO QAM 01/05/20 02/23/20 bupropion HCl [Wellbutrin XL] 300 mg PO QAM 01/05/20 02/23/20 clonazepam 2 mg PO BID 01/05/20 02/23/20 duloxetine 60 mg PO BID 01/05/20 02/23/20 wszqpkvszn-azcwgamk-uqnlul ala 1 tablet PO DAILY 01/05/20 02/23/20 [Odefsey] montelukast [Singulair] 10 mg PO HS 01/05/20 02/23/20 valproic acid 750 mg PO Q12H 01/05/20 02/23/20 dabigatran etexilate [Pradaxa] 150 mg PO BID 02/18/20 02/23/20 dolutegravir [Tivicay] mg 04/06/20 Allergies Allergy/AdvReac Type Severity Reaction Status Date / Time No Known Allergies Allergy Verified 05/29/20 19:42 Review of Systems Review of Systems: All systems reviewed & are unremarkable except as noted in HPI and below Constitutional: Constitutional: Reports fever(s) ENT: Reports dizziness and Denies sore throat Cardiovascular: Cardiovascular: Denies chest pain Respiratory: Respiratory: Reports cough and Denies dyspnea Gastrointestinal: Gastrointestinal: Denies abdominal pain, Denies diarrhea, Reports nausea and Reports vomiting Neurologic: Reports weakness PMFSH Past Medical History Medical History Abdominal cyst Abnormal ECG Abnormal echocardiogram Abnormal stress test Anxiety Cellulitis left leg Depression Diverticulitis DVT (deep venous thrombosis) GERD (gastroesophageal reflux disease) Hand fracture, right HIV (human immunodeficiency virus infection) Migraines Pneumonia Pulmonary embolism right lung Seizures Social History Social History Smoking packs per day: 0.5 Smoking cigarettes per day: 10.0 Smoking status: Current every day smoker Tobacco type: cigarettes Alcohol intake: current Substance use: former Substance use type: marijuana, crack/cocaine and methamphetamine Gender identity (if verbalized by the patient): Male Exam Const: General: no acute distress and alert Orientation/consciousness: patient oriented x3 HENMT: Face and sinus: sinuses nontender and face symmetric Mouth: Yes Normal oral and palatal mucosa present, Yes lip normal, Yes oropharynx normal and Yes moist mucous membranes Eyes: Pupils: Equal, round and reactive pupils present EOM: EOMs intact bilaterally Chest: Chest palpation & inspection: normal inspection of the chest Resp: Effort & Inspection: normal respiratory effort, no retractions and no use of accessory muscles Auscultation: clear to auscultation bilaterally Cardio: Rate: regular rate Rhythm: regular rhythm Heart sounds: no murmurs GI: GI Palp: Yes Soft to palpation, No Tenderness to palpation present (GI), No Guarding due to palpation present (GI) and No Rigid due to palpation Back/Spine/Pelvis: Back: no CVA tenderness Skin: General skin exam: normal color Rashes: no rashes Neuro: General: patient oriented x3, moves all extremities and CN's II-XI intact bilaterally Extrem: General: normal to inspection and no pedal edema Course Reevaluation(s) Reevaluation #1: Patient states he feels better. He denies dizziness
[2020-05-29 20:11] LABS: Basophils Percent Auto 0.4 % (0.2-1.2); Eosinophils Percent Auto 0.4 % (0-4.4); Hematocrit 43.7 % (42.0-52.0); Hemoglobin 14.8 g/dL (14.0-18.0); Immature Granulocyte Absolute 0.04 K/mm3 (0.00-0.031); Immature Granulocyte Percent A 0.8 % (0-0.5); Lymphocytes Absolute Auto 1.77 K/mm3 (0.9-3.2); Lymphocytes Percent Auto 34.7 % (18.3-44.2); Mean Corpuscular HGB Conc 33.9 g/dl (32-36); Mean Corpuscular Volume 97.3 fl (80-100); Mean Platelet Volume 10.9 fl (7.4-10.4); Monocytes Absolute Auto 0.8 K/mm3 (0.1-0.6); Monocytes Percent Auto 15.1 % (2.6-8.5); Neutrophils Absolute Auto 2.5 K/mm3 (1.3-6.7); Neutrophils Percent Auto 48.6 % (45.5-73.1); Platelet Count Result 165 k/mm3 (150-375); Red Blood Count 4.49 M/mm3 (4.6-6.20); Red Cell Distribution Width 13.2 % (11.5-14.5); White Blood Count 5.1 K/mm3 (4.5-10.0)
[2020-05-29] MEDS: ONDANSETRON INJ 4 MG/2 ML VIAL IV PUSH (20:17)
[2020-05-29] MEDS: LACTATED RINGERS 1,000 ML 999 ML IV CONT (20:17)
[2020-05-29 20:22] LABS: INR 1.1; Prothrombin Time 13.4 Seconds (11.1-14.7)
[2020-05-29 20:22] LABS: Alveolar/Arterial O2 Gradient 37.5 mmHg; Base Excess ABG -2.7 mEq/l (+/-2.0); Carboxyhemoglobin 0.3 % THb (0-2.0); Fractional Inspired Oxygen 21 %; HCO3 ABG 20.3 mEq/l (22.0-26.0); Methemoglobin ABG 0.2 %THb (0-1.5); Oxygen Content ABG 19.7 %vol (16.0-22.0); Oxygen Saturation ABG 95.7 % (95.0-100.0); Oxyhemoglobin 94.1 % THb (90.0-100.0); PCO2 ABG 30.8 mmHg (35.0-45.0); PO2 ABG 75.3 mmHg (80.0-100.0); PO2 FiO2 Ratio Arterial Blood 3.59 %; Reduced Hemoglobin 5.4 %THb (0-5.0); Total Hemoglobin 14.9 g/dL (12.0-18.0); pH ABG 7.437 (7.350-7.450)
[2020-05-29 20:24] LABS: Device ROOM AIR; Modified Allen's Test Pass; Site Drawn LEFT RADIAL
[2020-05-29 20:26] LABS: Alanine Aminotransferase 71 U/L (4-50); Albumin Level 4.2 g/dL (3.5-5.1); Alkaline Phosphatase 79 U/L (38-126); Aspartate Amino Transferase 51 U/L (17-59); Bilirubin,Total 0.4 mg/dL (0.2-1.3); Blood Urea Nitrogen 10 mg/dL (9-20); CRP 2.9 mg/dL (<1.0); Calcium 8.9 mg/dL (8.4-10.2); Carbon Dioxide 27 mmol/L (22-30); Chloride 100 mmol/L (98-107); Estimated CRCL calculation 107 ml/min; Estimated Glomerular Filt Rate > 60; Glucose 94 mg/dL (75-110); Lactate Dehydrogenase 491 U/L (313-618); Lipase 141 U/L (23-300); Potassium 3.9 mmol/L (3.4-5.0); Sodium 138 mmol/L (137-145)
[2020-05-29 20:28] LABS: D Dimer 0.27 ug/mL (<0.48)
[2020-05-29 20:43] LABS: Lactic Acid Reflex 0.9 mmol/L (0.7-2.1)
[2020-05-29 20:50] VITALS: BP 151/79; PULSE 72
[2020-05-29 20:51] VITALS: BP 150/86; PULSE 87
[2020-05-29 20:52] VITALS: BP 141/90; PULSE 74
[2020-05-29 21:04] LABS: Valproic Acid 72.4 ug/mL (50-120)
[2020-05-29 21:16] LABS: Add Urine Microscopic? YES; Appearance Urine Clear (Clear); Bacteria Urine Trace /hpf; Bilirubin Urine Negative (Negative); Blood Urine Negative (Negative); Color Urine Yellow (Yellow); Glucose Urine UA Negative (Negative); Ketones Urine Trace mg/dL (Negative); Leukocyte Esterase Ur Negative LEU/UL (Negative); Mucus Urine Rare /lpf; Nitrate Urine Negative (Negative); Protein Urine Negative (Negative); Specific Grav Ur 1.023 (1.001-1.035); WBC Urine 0-3 /hpf
[2020-05-29 22:00] VITALS: BP 149/96; PULSE 85; RESP 18; O2SAT 97
== END 2020-05-29 22:00 | disposition home or self-care (01) ==
PROVIDERS: Emergency Provider General Practice
DX: R11.2 Nausea with vomiting, unspecified (principal); R42 Dizziness and giddiness; I45.10 Unspecified right bundle-branch block; B20 Human immunodeficiency virus [HIV] disease; F17.210 Nicotine dependence, cigarettes, uncomplicated; F41.9 Anxiety disorder, unspecified; K21.9 Gastro-esophageal reflux disease without esophagitis; G40.909 Epilepsy, unspecified, not intractable, without status epilepticus; Z20.828 Contact with and (suspected) exposure to other viral communicable diseases
CPT/HCPCS: 36415; 36600; 71045; 80053; 80164; 81001; 82375; 82805; 83050; 83605; 83615; 83690; 83735; 85025; 85380; 85610; 85730; 86140; 93005; 96361; 96374; 99284; J2405; J7120

== ENCOUNTER → 2020-09-03 13:03 | Outpatient (CLI) | payer BC, SELFPAY ==
--- NOTE | ~2020-09-03 | MR_ITS ---
EXAMINATION: MR thoracic spine wo/w con EXAM DATE: 09/03/2020 14:51 INDICATION: Multiple sclerosis . TECHNIQUE: Multi-sequential, multiplanar MR images of the thoracic spine were obtained without contra st. Sagittal T1, T2, T2 fat saturation, axial T2 weighted images reviewed. Axial T1 weighted sequenc e. Patient was then injected with 20 mL Multihance intravenous contrast and reimaged. Postcontrast axial and sagittal T1-weighted fat saturation sequences were obtained. There is no prior study for c omparison. FINDINGS: Study is limited from motion. Sagittal sequence demonstrates increased T2 signal posterior to the T3 vertebral body, however on the axial images there is no signal abnormality in this locatio n, and this is therefore most likely artifact. Likewise, there are some small regions of signal abnor mality identified on the axial sequence that are not specifically confirmed on the sagittal sequence. There is mild thoracic disc disease, arthropathy, mild mid thoracic neural foraminal stenosis. The c entral canal is widely patent. There are no areas of abnormal enhancement on the post contrast images . IMPRESSION: 1. Limited from patient motion, with some signal changes believed most likely artifactual. 2. Mild thoracic spondylosis. Reviewed, dictated and finalized at location A. IMPRESSION: 1. Limited from patient motion, with some signal changes believed most likely a rtifactual. 2. Mild thoracic spondylosis.
--- NOTE | ~2020-09-03 | MR_ITS ---
EXAMINATION: MR brain/brain stem wo/w con DATE: 09/03/2020 14:53 INDICATION: Multiple sclerosis. TECHNIQUE: Magnetic resonance imaging (MRI) of the brain and brainstem was performed without and with 20 mL MultiHance intravenous contrast. Sequences included sagittal and axial T1-weighted FLAIR, axia l T1-weighted FSE, axial diffusion-weighted FS EPI, sagittal T2-weighted FLAIR, axial T2*-weighted GR E, axial T2-weighted FLAIR Propeller, and axial T2-weighted Propeller. Postcontrast sequences include d axial, coronal, and sagittal T1-weighted FSE. Apparent diffusion coefficient (ADC) maps were create d. COMPARISON: Head CT 11/26/2019 FINDINGS: There is no intracranial hemorrhage, acute infarction, or abnormal intracranial mass lesion . The ventricles are normal in size. The paranasal sinuses are clear. The orbits are normal. The mast oid air cells are normal. IMPRESSION: 1. Normal brain. Reviewed, dictated and finalized at location A. IMPRESSION: 1. Normal brain.
[2020-09-03 13:43] LABS: Estimated Glomerular Filt Rate > 60
== END ==
PROVIDERS: PCP Family Medicine; Visit Provider Psychiatry & Neurology Neurology
DX: G35 Multiple sclerosis (principal); M47.894 Other spondylosis, thoracic region
CPT/HCPCS: 70553; 72157; A9577

== ENCOUNTER 2020-09-14 08:50 | Outpatient (CLI) | payer BC, SELFPAY ==
--- NOTE | 2020-09-17 11:37 | P.NEURO_ITS ---
Neurology EEG Report General Information Date of Study: 09/14/20 TEST eeg DIAGNOSIS seizures CONDITION OF RECORDING awake drowsy and sleep EEG NUMBER [id number] CLINICAL HISTORY patient reported he has a lot of health issues but recently has been falling a lot. Denies loss of consciousness EEG DESCRIPTION basic resting occipital frequency consists of moderate amount of fairly well- organized low to medium voltage 8 to 9 hertz per second alpha admixed with low- voltage 15 to 18 hertz per second beta. Bilateral symmetrical sleep activity is seen during sleep. throughout the tracing intermittent EKG artifacts are noted superimposed on the background rhythm in addition to multiple movements artifacts IMPRESSION no significant abnormalities noted
== END 2020-09-14 08:51 | disposition home or self-care (01) ==
PROVIDERS: PCP Family Medicine; Visit Provider Psychiatry & Neurology Neurology
DX: R56.9 Unspecified convulsions (principal)
CPT/HCPCS: 95816

== ENCOUNTER 2020-10-24 16:15 | Emergency (ER) | payer BC, SELFPAY ==
[2020-10-24 16:27] VITALS: BP 127/78; PULSE 103; RESP 20; TEMP 36.4; O2SAT 99
[2020-10-24 17:37] LABS: Basophils Percent Auto 0.5 % (0.2-1.2); Eosinophils Absolute Auto 0.1 K/mm3 (0-0.3); Eosinophils Percent Auto 1.9 % (0-4.4); Hematocrit 43.7 % (42.0-52.0); Hemoglobin 14.8 g/dL (14.0-18.0); Immature Granulocyte Absolute 0.04 K/mm3 (0.00-0.031); Immature Granulocyte Percent A 0.6 % (0-0.5); Lymphocytes Absolute Auto 2.54 K/mm3 (0.9-3.2); Lymphocytes Percent Auto 40.3 % (18.3-44.2); Mean Corpuscular HGB Conc 33.9 g/dl (32-36); Mean Corpuscular Hemoglobin 31.9 pg (26-34); Mean Corpuscular Volume 94.2 fl (80-100); Mean Platelet Volume 10.2 fl (7.4-10.4); Monocytes Absolute Auto 0.7 K/mm3 (0.1-0.6); Monocytes Percent Auto 11.1 % (2.6-8.5); Neutrophils Absolute Auto 2.9 K/mm3 (1.3-6.7); Neutrophils Percent Auto 45.6 % (45.5-73.1); Platelet Count Result 244 k/mm3 (150-375); Red Blood Count 4.64 M/mm3 (4.6-6.20); Red Cell Distribution Width 12.3 % (11.5-14.5); White Blood Count 6.3 K/mm3 (4.5-10.0)
[2020-10-24 17:53] LABS: Alanine Aminotransferase 58 U/L (4-50); Albumin Level 4.1 g/dL (3.5-5.1); Alkaline Phosphatase 80 U/L (38-126); Anion Gap 6 mmol/L (8-16); Aspartate Amino Transferase 43 U/L (17-59); Bilirubin,Total 0.4 mg/dL (0.2-1.3); Blood Urea Nitrogen 7 mg/dL (9-20); Calcium 9.4 mg/dL (8.4-10.2); Carbon Dioxide 31 mmol/L (22-30); Chloride 101 mmol/L (98-107); Estimated CRCL calculation 123 ml/min; Estimated Glomerular Filt Rate > 60; Glucose 95 mg/dL (75-110); Lipase 89 U/L (23-300); Potassium 4.6 mmol/L (3.4-5.0); Sodium 138 mmol/L (137-145)
[2020-10-24 17:54] LABS: Add Urine Microscopic? NO; Appearance Urine Clear (Clear); Bilirubin Urine Negative (Negative); Blood Urine Negative (Negative); Color Urine Yellow (Yellow); Glucose Urine UA Negative (Negative); Ketones Urine Negative (Negative); Leukocyte Esterase Ur Negative LEU/UL (Negative); Nitrate Urine Negative (Negative); Protein Urine Negative (Negative); Specific Grav Ur 1.027 (1.001-1.035); Urobilinogen Urine Negative mg/dL (<2.0)
[2020-10-24 19:32] VITALS: BP 139/87; PULSE 88
[2020-10-24 19:33] VITALS: BP 125/90; PULSE 94
[2020-10-24] MEDS: LACTATED RINGERS 1,000 ML 999 ML IV CONT (20:43)
--- NOTE | 2020-10-24 20:49 | ED.NAVMDI ---
HPI - Nausea/Vomiting/Diarrhea General Chief complaint: Nausea/Vomiting/Diarrhea Stated complaint: covid symptoms Time Seen by Provider: 10/24/20 19:29 Source: patient Mode of arrival: ambulatory Limitations: no limitations History of Present Illness HPI Narrative: 35-year-old male Complains of a history of nausea vomiting diarrhea and low back pain that started last night He is also had a subjective fever at home but does not have one here No cough no shortness of breath He is worried about essentially secondhand Covid exposure where he might have been exposed to his mom who he lives with who might have been exposed to someone who had Covid although his mom is not sick Patient has a history of HIV and is compliant with his antivirals Apart from the back pain he has no urinary symptoms either Related Data Home Medications Medication Instructions Recorded Confirmed bupropion HCl [Wellbutrin XL] 150 mg PO QAM 01/05/20 02/23/20 bupropion HCl [Wellbutrin XL] 300 mg PO QAM 01/05/20 02/23/20 clonazepam 2 mg PO BID 01/05/20 02/23/20 duloxetine 60 mg PO BID 01/05/20 02/23/20 entagqjhgd-ugoypvkr-pvgsdb ala 1 tablet PO DAILY 01/05/20 02/23/20 [Odefsey] montelukast [Singulair] 10 mg PO HS 01/05/20 02/23/20 valproic acid 750 mg PO Q12H 01/05/20 02/23/20 dabigatran etexilate [Pradaxa] 150 mg PO BID 02/18/20 02/23/20 dolutegravir [Tivicay] mg 04/06/20 Allergies Allergy/AdvReac Type Severity Reaction Status Date / Time No Known Allergies Allergy Verified 10/24/20 19:42 Review of Systems Review of Systems: All systems reviewed & are unremarkable except as noted in HPI and below Constitutional: Constitutional: Reports chills, Reports fatigue, Reports fever(s), Denies headache(s) and Reports weakness Eyes: Eyes: Reports no additional eye complaints and Denies change in vision ENT: Denies headache(s), Denies epistaxis, Denies nasal congestion and Denies sore throat Cardiovascular: Cardiovascular: Denies chest pain, Denies leg edema, Denies palpitations and Denies dyspnea Respiratory: Respiratory: Denies cough, Denies dyspnea and Denies wheezing Gastrointestinal: Gastrointestinal: Reports abdominal pain, Reports diarrhea, Reports nausea and Reports vomiting Genitourinary: Genitourinary: Denies hematuria, Denies dysuria and Denies urinary frequency Comments: Back pain Musculoskeletal: Musculoskeletal: Reports back pain, Denies deformity, Denies arthralgias, Denies joint swelling, Denies muscle weakness and Denies numbness Integumentary/Breasts: Skin/Breast: Denies rash and Denies wounds Neurologic: Denies headache(s), Denies focal weakness, Denies numbness and Denies weakness Psychiatric: Psychiatric: Reports no additional psychiatric complaints Endocrine: Endocrine: Denies fatigue and Denies palpitations Hematologic/Lymphatic: Hematologic/Lymphatic: Denies easy bleeding and Denies easy bruising Allergic/Immunologic: Allergic/Immunologic: Denies wheezing PMFSH Past Medical History Medical History (Updated 10/24/20 @ 22:17 by Avinash Aguilar MD) Abdominal cyst Abnormal ECG Abnormal echocardiogram Abnormal stress test Anxiety Cellulitis left leg Depression Diverticulitis DVT (deep venous thrombosis) GERD (gastroesophageal reflux disease) Hand fracture, right HIV (human immunodeficiency virus infection) Migraines Pneumonia Pulmonary embolism right lung Seizures Surgical History Surgical History History of hand surgery right Social History Social History Smoking packs per day: 0.5 Smoking cigarettes per day: 10.0 Smoking status: Current every day smoker Tobacco type: cigarettes Alcohol intake: current Substance use: former Substance use type: marijuana, crack/cocaine and methamphetamine Gender identity (if verbalized by the patient): Male Exam Const: General: n
[2020-10-24] MEDS: ONDANSETRON INJ 4 MG/2 ML VIAL IV PUSH (21:16)
[2020-10-24 22:34] VITALS: BP 132/70; PULSE 78; RESP 18; TEMP 36.6; O2SAT 100
[2020-10-25 20:04] LABS: SARS-CoV-2 RNA PCR Negative
== END 2020-10-24 22:36 | disposition home or self-care (01) ==
PROVIDERS: Emergency Provider Emergency Medicine; PCP Family Medicine
DX: Z20.828 Contact with and (suspected) exposure to other viral communicable diseases (principal); R11.2 Nausea with vomiting, unspecified; F41.9 Anxiety disorder, unspecified; Z86.718 Personal history of other venous thrombosis and embolism; G40.909 Epilepsy, unspecified, not intractable, without status epilepticus; Z21 Asymptomatic human immunodeficiency virus [HIV] infection status
CPT/HCPCS: 36415; 80053; 81003; 83690; 85025; 87635; 96361; 96374; 99284; C9803; J2405; J7120; U0003

== ENCOUNTER 2020-11-02 11:49 | Emergency (ER) | payer BC, SELFPAY ==
--- NOTE | ~2020-11-02 | XR_ITS ---
XR chest 1V portable DATE: 11/02/2020 13:54 INDICATION: Shortness of breath, dizziness TECHNIQUE: Portable upright AP chest on 11/02/2020 at 1357 hours COMPARISON: 05/29/2020 portable AP chest at 2042 hours /03/2020 CT pulmonary scan FINDINGS: Normal heart size. No hilar or mediastinal enlargement. Calcified pulmonary granulomas, lef t midlung, stable since 02/19/2020 CT examination. No pulmonary infiltrate or consolidation, pleural ef fusion or pulmonary vascular congestion or pneumothorax. IMPRESSION: Old pulmonary granulomatous disease No active cardiopulmonary disease Reviewed, dictated and finalized at location B. UM TECHNICIAN
[2020-11-02 11:50] VITALS: BP 141/96; PULSE 104; RESP 24; TEMP 36.6; O2SAT 98
--- NOTE | 2020-11-02 12:33 | ECG_ITS ---
Measurements Intervals [place] Rate: 101 P: 42 DE: 153 QRS: -19 QRSD: 105 T: 29 QT: 333 QTc: 432 Interpretive Statements SINUS TACHYCARDIA DELAYED PRECORDIAL R/S TRANSITION ST ELEVATION IN DIFFUSE LEADS- PROBABLY EARLY REPOLARIZATION BORDERLINE ECG Electronically Signed On 11-02-2020 12:57:49 TYPER by Jamshid Barreto D.O.
[2020-11-02 13:12] LABS: Basophils Percent Auto 0.8 % (0.2-1.2); Eosinophils Absolute Auto 0.1 K/mm3 (0-0.3); Eosinophils Percent Auto 2.6 % (0-4.4); Hematocrit 42.2 % (42.0-52.0); Hemoglobin 14.5 g/dL (14.0-18.0); Immature Granulocyte Absolute 0.07 K/mm3 (0.00-0.031); Immature Granulocyte Percent A 1.4 % (0-0.5); Lymphocytes Absolute Auto 1.92 K/mm3 (0.9-3.2); Lymphocytes Percent Auto 38.4 % (18.3-44.2); Mean Corpuscular HGB Conc 34.4 g/dl (32-36); Mean Corpuscular Hemoglobin 31.9 pg (26-34); Mean Corpuscular Volume 92.7 fl (80-100); Mean Platelet Volume 10.5 fl (7.4-10.4); Monocytes Absolute Auto 0.5 K/mm3 (0.1-0.6); Monocytes Percent Auto 10.8 % (2.6-8.5); Neutrophils Absolute Auto 2.3 K/mm3 (1.3-6.7); Platelet Count Result 221 k/mm3 (150-375); Red Blood Count 4.55 M/mm3 (4.6-6.20); Red Cell Distribution Width 12.1 % (11.5-14.5)
[2020-11-02 13:24] LABS: Anion Gap 7 mmol/L (8-16); Blood Urea Nitrogen 5 mg/dL (9-20); Calcium 9.2 mg/dL (8.4-10.2); Carbon Dioxide 28 mmol/L (22-30); Chloride 102 mmol/L (98-107); Estimated Glomerular Filt Rate > 60; Glucose 233 mg/dL (75-110); Potassium 4.5 mmol/L (3.4-5.0); Sodium 137 mmol/L (137-145)
[2020-11-02 13:34] LABS: NT Pro B Type Natriuretic Pept 137 PG/ML (5-100)
[2020-11-02 13:39] LABS: D Dimer 0.27 ug/mL (<0.48)
[2020-11-02 13:44] VITALS: BP 138/71; PULSE 83; RESP 11; TEMP 36.8; O2SAT 97
--- NOTE | 2020-11-02 14:25 | ED.SOB ---
HPI - SOB/Dyspnea General Chief Complaint: Shortness of Breath/Dyspnea Stated Complaint: SOB Time Seen by Provider: 11/02/20 12:10 Source: patient Mode of arrival: ambulatory Limitations: no limitations History of Present Illness HPI Narrative: 35-year-old with a history of HIV, depression, PE, hypertension here with complaints of not feeling well, dizzy, shortness of breath since this morning. Patient states he has been taking his Pradaxa 150 mg p.o. twice daily. He denies any cough, fever or chills. No history of nausea or vomiting. Patient also mentions that he had recent Covid test negative. MD elicited complaint: shortness of breath Pertinent past history: pneumonia and HIV Onset (ago): day(s) (1) Timing: constant Severity: moderate Exacerbating factors: nothing Relieving factors: nothing Known history of: HIV and PE Associated symptoms: denies other symptoms Related Data Home oxygen amount: none Home Medications Medication Instructions Recorded Confirmed bupropion HCl [Wellbutrin XL] 150 mg PO QAM 01/05/20 02/23/20 bupropion HCl [Wellbutrin XL] 300 mg PO QAM 01/05/20 02/23/20 clonazepam 2 mg PO BID 01/05/20 02/23/20 duloxetine 60 mg PO BID 01/05/20 02/23/20 nrrhxqmbge-nizjfiea-jhhkdd ala 1 tablet PO DAILY 01/05/20 02/23/20 [Odefsey] montelukast [Singulair] 10 mg PO HS 01/05/20 02/23/20 valproic acid 750 mg PO Q12H 01/05/20 02/23/20 dabigatran etexilate [Pradaxa] 150 mg PO BID 02/18/20 02/23/20 dolutegravir [Tivicay] mg 04/06/20 Allergies Allergy/AdvReac Type Severity Reaction Status Date / Time No Known Allergies Allergy Verified 11/02/20 12:05 Review of Systems Review of Systems: All systems reviewed & are unremarkable except as noted in HPI and below Constitutional: Constitutional: Reports no additional constitutional complaints Eyes: Eyes: Reports no additional eye complaints ENT: Reports system reviewed and no additional complaints, except as documented Cardiovascular: Cardiovascular: Reports no additional cardiovascular complaints Respiratory: Respiratory: Reports as per HPI Gastrointestinal: Gastrointestinal: Reports no additional gastrointestinal complaints Musculoskeletal: Musculoskeletal: Reports no additional musculoskeletal complaints Neurologic: Reports system reviewed and no additional complaints, except as documented Psychiatric: Psychiatric: Reports no additional psychiatric complaints PMFSH Past Medical History Medical History (Updated 11/02/20 @ 14:37 by Joseph Reinoso MD) Abdominal cyst Abnormal ECG Abnormal echocardiogram Abnormal stress test Anxiety Cellulitis left leg Depression Diverticulitis DVT (deep venous thrombosis) GERD (gastroesophageal reflux disease) Hand fracture, right HIV (human immunodeficiency virus infection) Migraines Pneumonia Pulmonary embolism right lung Seizures Surgical History Surgical History History of hand surgery right Social History Social History Smoking packs per day: 0.5 Smoking cigarettes per day: 10.0 Smoking status: Current every day smoker Tobacco type: cigarettes Alcohol intake: current Substance use: former Substance use type: marijuana, crack/cocaine and methamphetamine Gender identity (if verbalized by the patient): Male Exam Narrative: Exam Narrative: GENERAL: Well-appearing, well-nourished, and in no acute distress. HEAD: Normocephalic, atraumatic. EYES: PERRLA and EOMI. ENT: Nares clear, no rhinorrhea or epistaxis. Mucous membranes moist. NECK: Supple. CHEST: Clear to auscultation. No respiratory distress. HEART: Regular rate and rhythm. No murmur heard. Normal peripheral pulses. ABDOMEN: Soft, nontender, nondistended, normal active bowel sounds. EXTREMITIES: Normal range of motion. No edema. SKIN: Warm, dry, no rash. NEURO: No focal deficits. Alert and oriented x3. PSYCH
[2020-11-02 15:02] VITALS: BP 133/83; PULSE 91; RESP 17; O2SAT 98
== END 2020-11-02 15:04 | disposition home or self-care (01) ==
PROVIDERS: Emergency Provider Family Medicine; PCP Family Medicine
DX: R06.02 Shortness of breath (principal); F41.9 Anxiety disorder, unspecified; Z21 Asymptomatic human immunodeficiency virus [HIV] infection status; I10 Essential (primary) hypertension; F32.9 Major depressive disorder, single episode, unspecified; K21.9 Gastro-esophageal reflux disease without esophagitis; Z86.718 Personal history of other venous thrombosis and embolism; Z86.711 Personal history of pulmonary embolism; F17.210 Nicotine dependence, cigarettes, uncomplicated; R00.0 Tachycardia, unspecified; R94.31 Abnormal electrocardiogram [ECG] [EKG]
CPT/HCPCS: 36415; 71045; 80048; 83880; 85025; 85380; 93005; 99283

== ENCOUNTER 2020-12-27 09:04 | Outpatient (CLI) | payer BC, SELFPAY ==
--- NOTE | 2020-12-27 12:00 | NEURO_ITS ---
Impression: # Known diabetic complains of numbness of lower extremities and back pain. # Motor and sensory axonal neuropathy. # Neurogenic changes in distal muscles. # Clinical correlation recommended. Nerve Conduction Studies Anti Sensory Summary Table Stim Site NR Peak (ms) P-T Amp (?V) Site1 Site2 Delta-P (ms) Dist (cm) Ad (m/s) Left Sup Fibular Anti Sensory (Ant Lat Mall) 14 cm 3.9 13.4 14 cm Ant Lat Mall 3.9 16.0 41 Right Sup Fibular Anti Sensory (Ant Lat Mall) 14 cm 3.7 17.9 14 cm Ant Lat Mall 3.7 16.0 43 Left Sural Anti Sensory (Lat Mall) Calf 3.5 22.9 Calf Lat Mall 3.5 16.0 46 Right Sural Anti Sensory (Lat Mall) Calf 4.4 6.2 Calf Lat Mall 4.4 16.0 36 Motor Summary Table Stim Site NR Onset (ms) O-P Amp (mV) Site1 Site2 Delta-0 (ms) Dist (cm) Ad (m/s) Left Peroneal Motor (Vastus Med) Ankle 4.8 3.0 Popit Ankle 10.9 44.0 40 Popit 15.7 2.3 Right Peroneal Motor (Vastus Med) Ankle 4.8 0.4 Popit Ankle 10.0 45.0 45 Popit 14.8 0.7 Left Tibial Motor (Abd Ty Brev) Ankle 4.4 0.7 Knee Ankle 12.0 49.0 41 Knee 16.4 0.4 Right Tibial Motor (Abd Ty Brev) Ankle 4.6 1.3 Knee Ankle 12.4 48.0 39 Knee 17.0 0.5 F Wave Studies NR F-Lat (ms) L-R F-Lat (ms) Left Peroneal (Mrkrs) (EDB) 62.08 0.79 Right Peroneal (Mrkrs) (EDB) 61.29 0.79 Left Tibial (Mrkrs) (Abd Hallucis) 59.61 0.82 Right Tibial (Mrkrs) (Abd Hallucis) 60.43 0.82 EMG Side Muscle Nerve Root Ins Act Fibs Amp Dur Recrt Comment Right AntTibialis Dp Br Fibular L4-5 Nml Nml Nml Nml Nml Right Gastroc Tibial S1-2 Nml Nml Nml Nml Nml Right Fibularis Long Sup Br Fibular L5-S1 Nml Nml Nml Nml Nml Right Flex Dig Long Tibial L5-S2 Nml Nml Nml Nml Nml Right Ext Dig Brev Dp Br Fibular L5, S1 Nml Nml Nml >12ms Reduced Left AntTibialis Dp Br Fibular L4-5 Nml Nml Nml Nml Nml Left Gastroc Tibial S1-2 Nml Nml Nml Nml Nml Left Fibularis Long Sup Br Fibular L5-S1 Nml Nml Nml Nml Nml Left Flex Dig Long Tibial L5-S2 Nml Nml Nml Nml Nml Left Ext Dig Brev Dp Br Fibular L5, S1 Nml Nml Nml >12ms Reduced Right QuadratusFem QuadFemoris L4-5, S1 Nml Nml Nml Nml Nml Left QuadratusFem QuadFemoris L4-5, S1 Nml Nml Nml Nml Nml MTDD
== END 2020-12-27 09:05 | disposition home or self-care (01) ==
PROVIDERS: PCP Nurse Practitioner Adult Health; Visit Provider Psychiatry & Neurology Neurology
DX: R53.1 Weakness (principal); G62.9 Polyneuropathy, unspecified
CPT/HCPCS: 95886; 95910

== ENCOUNTER 2021-01-18 21:17 | Emergency (ER) | payer BC, SELFPAY ==
--- NOTE | ~2021-01-18 | XR_ITS ---
EXAMINATION: XR hand RT 2V INDICATION: Right hand pain TECHNIQUE: Two views of the right hand are obtained COMPARISON: 11/16/2018 FINDINGS: No acute fracture is identified. Again noted is an old healed fracture deformity in the ashley physis of the fifth metacarpal with changes of internal fixation. There is chronic shortening of the fourth metacarpal with changes of internal fixation. Again noted is a screw that passes through a melanie te in the fourth metacarpal into the base of the third metacarpal. Lucency surrounding this screw in the third metacarpal is consistent with loosening. There is mild dorsal soft tissue swelling of the h and. IMPRESSION: 1. Surgical changes in the right hand without evidence of acute osseous abnormality. Reviewed, dictated and finalized at location A. L CAMPAIGN MANAGER IMPRESSION: 1. Surgical changes in the right hand without evidence of acute osseous abnorma lity.
[2021-01-18 21:42] VITALS: BP 153/93; PULSE 127; RESP 18; TEMP 37.2; O2SAT 99
--- NOTE | 2021-01-19 00:27 | PC.NURSE ---
No answer when called from waiting room.
--- NOTE | 2021-01-19 00:47 | PC.NURSE ---
Still not in lobby.
== END 2021-01-19 00:46 | disposition left against medical advice (07) ==
PROVIDERS: Emergency Provider Emergency Medicine; PCP Nurse Practitioner Adult Health
DX: S69.91XA Unspecified injury of right wrist, hand and finger(s), initial encounter (principal)
CPT/HCPCS: 73120; 99199

== ENCOUNTER 2021-01-27 08:08 | Emergency (ER) | payer BC, SELFPAY ==
--- NOTE | ~2021-01-27 | CT_ITS ---
EXAMINATION: CT abdomen pelvis w con DATE: 01/27/2021 10:27 INDICATION: Abdominal pain. Diarrhea. Left flank pain. TECHNIQUE: Computed tomography (CT) of the abdomen and pelvis was performed with 100 mL Omnipaque 350 intravenous contrast. Automated exposure control and iterative reconstruction technique were employe d. The dose-length product was 1717.98 mGy-cm. COMPARISON: CT abdomen and pelvis 07/09/2017 FINDINGS: The visualized portions of the lung bases demonstrate minimal atelectasis. No pleural effus ion. The heart size is normal. No pericardial effusion. There is diffuse hepatic steatosis. There is chronic mild splenomegaly, likely secondary to obesity. The pancreas, adrenal glands, and kidneys are normal. There are no dilated loops of bowel. There is mild wall thickening of the sigmoid colon. The appendix is normal. There is an umbilical hernia containing fat. There are subcutaneous injection si amy in the anterior abdominal wall. There are no pathologically enlarged lymph nodes. There is no fabricio e intraperitoneal fluid. There is mild thoracolumbar spondylosis. IMPRESSION: 1. Mild wall thickening of the sigmoid colon, likely colitis. 2. Umbilical hernia containing fat. Reviewed, dictated and finalized at location A.
[2021-01-27 08:12] VITALS: BP 127/57; PULSE 95; RESP 18; TEMP 36.2; O2SAT 98
[2021-01-27 08:23] VITALS: BP 129/79; PULSE 94
[2021-01-27 08:24] VITALS: BP 125/81; PULSE 88
[2021-01-27 08:26] VITALS: BP 126/88; PULSE 103
[2021-01-27] MEDS: ONDANSETRON INJ 4 MG/2 ML VIAL IV PUSH (08:39)
[2021-01-27] MEDS: SODIUM CHLORIDE 0.9% IV 1,000 ML 150 ML IV CONT (08:39)
[2021-01-27 08:55] LABS: Add Urine Microscopic? YES; Appearance Urine Clear (Clear); Bilirubin Urine Negative (Negative); Blood Urine Negative (Negative); Color Urine Yellow (Yellow); Glucose Urine UA Negative (Negative); Ketones Urine Trace mg/dL (Negative); Leukocyte Esterase Ur Negative LEU/UL (Negative); Mucus Urine Rare /lpf; Nitrate Urine Negative (Negative); Protein Urine 1+ mg/dL (Negative); RBC Urine 0-2 /hpf (0-2); WBC Urine 0-3 /hpf
[2021-01-27 09:02] LABS: Specific Grav Ur 1.031 (1.001-1.035)
[2021-01-27 09:10] LABS: Basophils Percent Auto 0.6 % (0.2-1.2); Eosinophils Absolute Auto 0.2 K/mm3 (0-0.3); Hematocrit 47.1 % (42.0-52.0); Hemoglobin 15.7 g/dL (14.0-18.0); Immature Granulocyte Absolute 0.04 K/mm3 (0.00-0.031); Immature Granulocyte Percent A 0.6 % (0-0.5); Lymphocytes Absolute Auto 2.63 K/mm3 (0.9-3.2); Lymphocytes Percent Auto 37.7 % (18.3-44.2); Mean Corpuscular HGB Conc 33.3 g/dl (32-36); Mean Corpuscular Hemoglobin 30.8 pg (26-34); Mean Corpuscular Volume 92.4 fl (80-100); Mean Platelet Volume 10.4 fl (7.4-10.4); Monocytes Absolute Auto 0.7 K/mm3 (0.1-0.6); Monocytes Percent Auto 9.3 % (2.6-8.5); Neutrophils Absolute Auto 3.4 K/mm3 (1.3-6.7); Neutrophils Percent Auto 48.8 % (45.5-73.1); Platelet Count Result 304 k/mm3 (150-375); Red Cell Distribution Width 13.3 % (11.5-14.5)
[2021-01-27 09:58] LABS: Alanine Aminotransferase 54 U/L (4-50); Albumin Level 3.8 g/dL (3.5-5.1); Alkaline Phosphatase 74 U/L (38-126); Anion Gap 4 mmol/L (8-16); Aspartate Amino Transferase 35 U/L (17-59); Bilirubin,Total 0.3 mg/dL (0.2-1.3); Blood Urea Nitrogen 13 mg/dL (9-20); Calcium 8.6 mg/dL (8.4-10.2); Carbon Dioxide 29 mmol/L (22-30); Chloride 108 mmol/L (98-107); Estimated CRCL calculation 147 ml/min; Estimated Glomerular Filt Rate > 60; Glucose 125 mg/dL (75-110); Lipase 126 U/L (23-300); Potassium 4.3 mmol/L (3.4-5.0); Sodium 141 mmol/L (137-145)
--- NOTE | 2021-01-27 10:52 | ED.GENADULT ---
HPI - General Adult General Chief complaint: Nausea/Vomiting/Diarrhea Stated complaint: diarrhea Time Seen by Provider: 01/27/21 08:32 Source: patient and family Mode of arrival: ambulatory Limitations: no limitations History of Present Illness HPI narrative: 35-year-old with a history of HIV positive, anxiety disorder depression here with complaints of having diarrhea for past few days associated with mild intermittent rectal bleeding. Also complains of mild lower abdominal pain. Patient also complained of dental pain for past several days. He denies any fever or chills. No recent use of any antibiotic. Denies previous history of diverticulitis or colitis. He states that he has been taking his HIV medication. Onset (ago): day(s) (2) Associated symptoms: denies other symptoms Related Data Home Medications Medication Instructions Recorded Confirmed bupropion HCl [Wellbutrin XL] 150 mg PO QAM 01/05/20 02/23/20 bupropion HCl [Wellbutrin XL] 300 mg PO QAM 01/05/20 02/23/20 clonazepam 2 mg PO BID 01/05/20 02/23/20 duloxetine 60 mg PO BID 01/05/20 02/23/20 ivjmzgsoig-ntzlmwxi-gerbqc ala 1 tablet PO DAILY 01/05/20 02/23/20 [Odefsey] montelukast [Singulair] 10 mg PO HS 01/05/20 02/23/20 valproic acid 750 mg PO Q12H 01/05/20 02/23/20 dabigatran etexilate [Pradaxa] 150 mg PO BID 02/18/20 02/23/20 dolutegravir [Tivicay] mg 04/06/20 Allergies Allergy/AdvReac Type Severity Reaction Status Date / Time cephalexin [From Keflex] Allergy Unknown Unknown Verified 01/27/21 08:19 Review of Systems Review of Systems: All systems reviewed & are unremarkable except as noted in HPI and below Constitutional: Constitutional: Reports no additional constitutional complaints Eyes: Eyes: Reports no additional eye complaints ENT: Reports as per HPI Cardiovascular: Cardiovascular: Reports no additional cardiovascular complaints Respiratory: Respiratory: Reports no additional respiratory complaints Gastrointestinal: Gastrointestinal: Reports as per HPI Musculoskeletal: Musculoskeletal: Reports no additional musculoskeletal complaints Neurologic: Reports system reviewed and no additional complaints, except as documented PMFSH Past Medical History Medical History Abdominal cyst Abnormal ECG Abnormal echocardiogram Abnormal stress test Anxiety Cellulitis left leg Chronic kidney disease, stage 3 Depression Diabetes Diverticulitis DVT (deep venous thrombosis) GERD (gastroesophageal reflux disease) Hand fracture, right High cholesterol History of blood clots HIV (human immunodeficiency virus infection) Migraines Pneumonia Pulmonary embolism right lung Seizures Surgical History Surgical History History of hand surgery right Family History Family History Father Diabetes mellitus Heart disease High cholesterol Heart attack Mother Cancer Cervical cancer Sibling Brain cancer Other Cerebrovascular accident Hypertension Cancer Kidney disease Social History Social History Smoking packs per day: 0.5 Smoking cigarettes per day: 10.0 Smoking status: Current every day smoker Tobacco type: cigarettes Alcohol intake: former Substance use: former Substance use type: marijuana, crack/cocaine and methamphetamine 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 HEAD: Normocephalic, atraumatic. EYES: PERRLA and EOMI. ENT: Nares clear, no rhinorrhea or epistaxis. Mucous membranes moist. has multiple dental Caries #15 ,16 NECK: Supple. CHEST: Clear to auscultation. No respiratory distress. HEART: Regular rate and rhythm. No mur
[2021-01-27] MEDS: KETOROLAC 30 MG/ML VIAL (*BKC) IV PUSH (11:04)
== END 2021-01-27 11:17 | disposition home or self-care (01) ==
PROVIDERS: Emergency Provider Family Medicine; PCP Nurse Practitioner Adult Health
DX: K52.9 Noninfective gastroenteritis and colitis, unspecified (principal); K02.9 Dental caries, unspecified; Z21 Asymptomatic human immunodeficiency virus [HIV] infection status; K42.9 Umbilical hernia without obstruction or gangrene; F17.210 Nicotine dependence, cigarettes, uncomplicated; F41.9 Anxiety disorder, unspecified; F32.9 Major depressive disorder, single episode, unspecified; E11.22 Type 2 diabetes mellitus with diabetic chronic kidney disease; N18.30 Chronic kidney disease, stage 3 unspecified; Z86.718 Personal history of other venous thrombosis and embolism; K21.9 Gastro-esophageal reflux disease without esophagitis; E78.00 Pure hypercholesterolemia, unspecified; Z86.711 Personal history of pulmonary embolism
CPT/HCPCS: 36415; 74177; 80053; 81001; 83690; 85025; 96361; 96374; 96375; 99284; J1885; J2405; J7030; Q9967

== ENCOUNTER 2021-02-13 12:27 | Outpatient (CLI) | payer BC, MEDICAID, SELFPAY ==
--- NOTE | ~2021-02-13 | CT_ITS ---
EXAMINATION: CT abdomen wo con EXAM DATE: 02/13/2021 12:46 INDICATION: Incarcerated ventral hernia. Abdominal pain. TECHNIQUE: Spiral CT of the abdomen was performed without contrast. Axial, coronal and sagittal nba ges were reviewed. The dose-length product (DLP) for this examination was 1106.27 mGy-cm. The expos ure was tailored according to patient size (auto mA exposure control), and iterative reconstruction ( ASIR) was used as additional dose reduction technique. Comparison is made to prior examination from . FINDINGS: Again there is moderate-sized umbilical hernia, with the midline defect measuring 1.7 cm, a nd the herniated portion of fat measuring about 4 cm. Small amount of fat stranding within this is un changed. There is mild hepatic steatosis without suspicious focal lesion identified. Spleen, adrenal glands, pancreas are unremarkable. Gallbladder is unremarkable. No biliary obstruction. There is no nephrolithiasis or hydronephrosis. There is no retroperitoneal lymphadenopathy. There is mild scattered arteriosclerotic disease. The appendix is normal. The stomach and small bowel are unremarkable. There is expected amount of c olonic stool. No free intraperitoneal gas. The heart is normal in size. There are no pericardial or pleural effusions. The lung bases are unremarkable. There are no osteoblastic or osteolytic les ions identified. IMPRESSION: 1. Moderate-sized umbilical fat-containing hernia. 2. Hepatic steatosis. Reviewed, dictated and finalized at location A.
== END 2021-02-13 12:28 | disposition home or self-care (01) ==
PROVIDERS: PCP Nurse Practitioner Adult Health; Visit Provider Surgery
DX: K42.9 Umbilical hernia without obstruction or gangrene (principal); K76.0 Fatty (change of) liver, not elsewhere classified; I70.90 Unspecified atherosclerosis
CPT/HCPCS: 74150

== ENCOUNTER → 2021-02-16 05:33 | Outpatient (CLI) | payer BC, SELFPAY ==
[2021-02-16 19:34] LABS: SARS-CoV-2 RNA PCR Negative
== END ==
PROVIDERS: PCP Nurse Practitioner Adult Health; Visit Provider Surgery
DX: Z01.812 Encounter for preprocedural laboratory examination (principal); Z20.822 Contact with and (suspected) exposure to COVID-19
CPT/HCPCS: C9803; U0003; U0005

== ENCOUNTER 2021-02-18 09:46 | Outpatient (CLI) | payer BC, SELFPAY ==
[2021-02-18 10:14] LABS: INR 0.9; Prothrombin Time 12.4 Seconds (11.1-14.7)
[2021-02-18 10:15] LABS: Partial Thromboplastin Time 50.7 SECONDS (22.3-36.8)
[2021-02-18 10:45] LABS: Valproic Acid 79.1 ug/mL (50-120)
== END 2021-02-18 09:47 | disposition home or self-care (01) ==
LOC: ANHSURGERY 09:48
PROVIDERS: Anesthesiology; PCP Nurse Practitioner Adult Health; Visit Provider Surgery
DX: Z01.812 Encounter for preprocedural laboratory examination (principal); N18.9 Chronic kidney disease, unspecified; R56.9 Unspecified convulsions
CPT/HCPCS: 36415; 80164; 85610; 85730

== ENCOUNTER 2021-02-20 01:22 | Day surgery (SDC) | payer BC, MEDICAID, SELFPAY ==
[2021-02-14 12:37] VITALS: BMI 40.8
[2021-02-20] VITALS (9 sets, daily range): BP systolic 127–141; BP diastolic 68–95; PULSE 60–91; RESP 12–20; TEMP 36.6–36.9; O2SAT 93–99
[2021-02-20] MEDS: ACETAMINOPHEN 500 MG TABLET 1000 MG PO (06:51)
--- NOTE | 2021-02-20 07:05 | WPDANESEPPF ---
Anes - Initial Pre Proc Eval Procedure: Operation Date: 02/20/21 07:30 Proposed Procedures p Open Incarcerated Ventral Hernia Repair With Mesh - Zuleima Burgess MD Date/Time: 02/20/21 07:05 Surgeon: Zuleima Burgess MD Pre Op Diagnosis: Ventral Hernia Patient Data Age: 35 Gender: M Height: 6 ft 4.5 in Weight: 153.1 kg Allergies Allergy/AdvReac Type Severity Reaction Status Date / Time cephalexin [From Keflex] Allergy Intermediate Rash Verified 02/20/21 06:32 Home Medications Medication Instructions Recorded Confirmed Type bupropion HCl [Wellbutrin XL] 300 mg PO DAILY 01/05/20 02/20/21 History clonazepam 1 mg PO BID 01/05/20 02/20/21 History montelukast [Singulair] 10 mg PO HS 01/05/20 02/20/21 History valproic acid 750 mg PO Q12H 01/05/20 02/20/21 History dabigatran etexilate [Pradaxa] 150 mg PO BID 02/18/20 02/20/21 History pantoprazole 40 mg PO QAM 28 Days #28 tablet 04/06/20 02/20/21 Rx cholecalciferol (vitamin D3) 1,250 1,250 mcg PO WEEKLY 01/29/21 02/20/21 History mcg (50,000 unit) capsule famotidine 20 mg tablet 20 mg PO BID 01/29/21 02/20/21 History hydrocodone 5 mg-acetaminophen 325 1 tablet PO Q8H PRN 01/29/21 02/20/21 History mg tablet icosapent ethyl 1 gram capsule 2 g PO BID 01/29/21 02/20/21 History lisinopril 10 mg tablet 10 mg PO DAILY 01/29/21 02/20/21 History atorvastatin 10 mg tablet 10 mg PO DAILY 02/13/21 02/20/21 History bictegravir 50 mg-emtricitabine 1 tablet PO HS 02/13/21 02/20/21 History 200 mg-tenofovir alafenam 25 mg tablet doravirine 100 mg tablet 100 mg PO HS 02/13/21 02/20/21 History dulaglutide 0.75 mg/0.5 mL 0.75 mg SUBCUT WEEKLY 02/13/21 02/20/21 History subcutaneous pen injector enoxaparin [Lovenox] 120 mg SUBCUT BID 02/14/21 02/20/21 History levothyroxine 100 mcg PO DAILY 02/14/21 02/20/21 History melatonin 10 mg PO HS 02/14/21 02/20/21 History tizanidine 4 mg PO Q8H PRN 02/14/21 02/20/21 History Patient hx anesthesia problems: none Family hx anesthesia problems: none PMFSH Past Medical History Medical History Abdominal cyst Abnormal ECG Abnormal echocardiogram Abnormal stress test Anxiety Cellulitis left leg Chronic kidney disease, stage 3 Depression Diabetes Diverticulitis DVT (deep venous thrombosis) GERD (gastroesophageal reflux disease) Hand fracture, right High cholesterol History of blood clots HIV (human immunodeficiency virus infection) Migraines Pneumonia Pulmonary embolism right lung Seizures Surgical History Surgical History History of hand surgery right Family History Family History Father Diabetes mellitus Heart disease High cholesterol Heart attack Mother Cancer Cervical cancer Sibling Brain cancer Other Cerebrovascular accident Hypertension Cancer Kidney disease Social History Social History Smoking packs per day: 1 Smoking cigarettes per day: 20.0 Years smoked: 22 Smoking pack-years: 22.00 Smoking status: Former smoker Tobacco type: cigarettes and e-cigarettes/vaping Smoking end date: 02/15/20 Additional smoking assessment comments: VAPING CURRENTLY - 1.8 NICOTINE LEVEL Alcohol intake: never Substance use: former Substance use type: marijuana, crack/cocaine and methamphetamine Last use: 09/2019 Living arrangements: with family 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
[2021-02-20] MEDS: KETOROLAC 15 MG/ML VIAL (*BKC) IV PUSH (07:12)
[2021-02-20] MEDS: LACTATED RINGERS 1,000 ML 30 ML IV CONT ×2 (07:14→08:41)
--- NOTE | 2021-02-20 07:16 | WPDHPUPDATE1 ---
History and Physical Update Update Date/Time: 02/20/21 07:16 History and Physical has been reviewed, including an updated exam of the patient. There are NO changes in the patient's condition. Risks, benefits, and alternatives have been discussed and questions answered. Patient agrees to proceed with procedure.
[2021-02-20 07:26] LABS: Glucose Point of Care 116 (65-105)
[2021-02-20] MEDS: CLINDAMYCIN 900 MG/D5W 50 ML 900 MG/50 ML PIGGYBACK 50 MG IVPB (07:36)
[2021-02-20] MEDS: BUPIVACAINE/EPINEPHRINE 0.5% 30 ML VIAL INFILTRATE (08:00)
--- NOTE | 2021-02-20 08:39 | P.OP_ITS ---
Procedure Note - Detailed Date of procedure: 02/20/21 Pre-op diagnosis: Ventral Hernia incarcerated periumbilical ventral hernia Post-op diagnosis: same Procedure performed: primary repair of incarcerated umbilical hernia Description of procedure: The patient was taken to the operating room placed in the supine position. After adequate induction of general anesthesia, the patient was prepped and draped in the normal sterile fashion. A time-out was then done to verify the patient's identity, as well as the procedure being performed. I began by localizing the area around the periumbilical hernia. I then made a curvilinear incision in the infraumbilical fold. This incision was taken down to the level of the fascia. I then was able to bluntly dissect around the umbilicus. I then carefully dissected the umbilicus off the underlying fascia. I then noted a moderate sized defect extending from the umbilicus superiorly with a large amount of incarcerated fat and omentum. I was able to mobilize the incarcerated tissue and slowly reduced it back into the abdominal cavity. This left an approximately 2 cm defect. I then dissected planes both anterior and posterior to the defect to allow placement of the mesh. Once done, I placed a 4.6 cm ventral patch in the underlay position. This had good local coverage of the defect and was sutured in with interrupted 0 Ethibond sutures. I then closed the defect over the mesh repair with interrupted 0 Ethibond suture. I then reapproximated the umbilicus to the fascia with a 3 0 Vicryl U-stitch. The subcutaneous tissue was then closed with 3 0 Vicryl gutierrez ture. The skin was closed with 4 0 Monocryl subcuticular suture. Dermabond was then placed on the wound. The patient tolerated the procedure well was extubated in the operating room postop. He will be transferred to the recovery room in stable condition. Implants: 4.6 cm Ventralex patch Anesthesia: GLMA and local Surgeon: Zuleima Burgess MD Estimated blood loss (mL): 10 Drains: No Packing: No Pathology: none sent Complications: No immediate complications Condition: stable Disposition: PACU Findings: Incarcerated periumbilical ventral hernia with fat, omentum
[2021-02-20] MEDS: fentaNYL CITRATE INJ (*CRX) 100 MCG/2 ML VIAL 25 MCG IV PUSH ×4 (08:59→09:16)
[2021-02-20] MEDS: oxyCODONE HCL (*CRX) 5 MG TAB IR PO (09:35)
[2021-02-20 12:16] LABS: Glucose Point of Care 105 (65-105)
== END 2021-02-20 10:10 | disposition home or self-care (01) ==
PROVIDERS: PCP Nurse Practitioner Adult Health; Visit Provider Surgery
PROC: 0WQF0ZZ Repair Abdominal Wall, Open Approach (ICD-10-PCS; CPT 49561; principal; 2021-02-20 07:30)
DX: K43.6 Other and unspecified ventral hernia with obstruction, without gangrene (principal); I12.9 Hypertensive chronic kidney disease with stage 1 through stage 4 chronic kidney disease, or unspecified chronic kidney disease; E11.22 Type 2 diabetes mellitus with diabetic chronic kidney disease; N18.30 Chronic kidney disease, stage 3 unspecified; F41.8 Other specified anxiety disorders; K21.9 Gastro-esophageal reflux disease without esophagitis; E78.00 Pure hypercholesterolemia, unspecified; G40.909 Epilepsy, unspecified, not intractable, without status epilepticus; Z21 Asymptomatic human immunodeficiency virus [HIV] infection status; Z86.711 Personal history of pulmonary embolism; Z86.718 Personal history of other venous thrombosis and embolism; F17.290 Nicotine dependence, other tobacco product, uncomplicated; E66.01 Morbid (severe) obesity due to excess calories; Z68.41 Body mass index [BMI] 40.0-44.9, adult
CPT/HCPCS: 49561; 49568; A9270; C1781; J0330; J1100; J1170; J1885; J2250; J2405; J2704; J2710; J3010; J7120

== ENCOUNTER 2021-02-21 19:18 | Emergency (ER) | payer BC, MEDICAID, SELFPAY ==
[2021-02-21 19:19] VITALS: BP 149/88; PULSE 92; RESP 18; TEMP 36.4; O2SAT 99
--- NOTE | 2021-02-21 19:25 | ECG_ITS ---
Measurements Intervals [place] Rate: 88 P: 36 [place]: 167 QRS: -27 QRSD: 112 T: 42 QT: 365 QTc: 442 Interpretive Statements SINUS RHYTHM INTRAVENTRICULAR CONDUCTION DELAY DELAYED PRECORDIAL R/S TRANSITION VOLTAGE CRITERIA FOR LVH MINIMAL Q WAVES- HIGH LATERAL LEADS BORDERLINE ECG Electronically Signed On 02-22-2021 7:11:58 CDT by Jamshid Barreto D.O.
--- NOTE | 2021-02-21 20:06 | ED.GENADULT ---
HPI - General Adult General Chief complaint: Unspecified Stated complaint: neck and arm pain post hernia surgery yesterday Time Seen by Provider: 02/21/21 19:45 History of Present Illness HPI narrative: 35 yo male presents on post op day number 1 with multipel complaints. He reports that ever since he awoke after surgery his tongue has been numb. He has had no difficulty with speech and taste is intact. He also complains of pain in the left side of his neck and left arm. This was not present immediately following surgery, but has contiued to increase since that time. The pain is moderate. Feels like tight muscles. He has pain medication that was prescribed to him. Related Data Home Medications Medication Instructions Recorded Confirmed bupropion HCl [Wellbutrin XL] 300 mg PO DAILY 01/05/20 03/06/21 clonazepam 1 mg PO BID 01/05/20 03/06/21 montelukast [Singulair] 10 mg PO HS 01/05/20 03/06/21 valproic acid 750 mg PO Q12H 01/05/20 03/06/21 Pradaxa 150 mg PO BID 02/18/20 03/06/21 cholecalciferol (vitamin D3) 1,250 1,250 mcg PO WEEKLY 01/29/21 03/06/21 mcg (50,000 unit) capsule famotidine 20 mg tablet 20 mg PO BID 01/29/21 03/06/21 icosapent ethyl 1 gram capsule 2 g PO BID 01/29/21 03/06/21 lisinopril 10 mg tablet 10 mg PO DAILY 01/29/21 03/06/21 atorvastatin 10 mg tablet 10 mg PO DAILY 02/13/21 03/06/21 bictegravir 50 mg-emtricitabine 1 tablet PO HS 02/13/21 03/06/21 200 mg-tenofovir alafenam 25 mg tablet doravirine 100 mg tablet 100 mg PO HS 02/13/21 03/06/21 dulaglutide 0.75 mg/0.5 mL 0.75 mg SUBCUT WEEKLY 02/13/21 03/06/21 subcutaneous pen injector enoxaparin [Lovenox] 120 mg SUBCUT BID 02/14/21 03/06/21 levothyroxine 100 mcg PO DAILY 02/14/21 03/06/21 melatonin 10 mg PO HS 02/14/21 03/06/21 tizanidine 4 mg PO Q8H PRN 02/14/21 03/06/21 sulfamethoxazole 800 1 tablet PO Q12H 03/06/21 03/06/21 mg-trimethoprim 160 mg tablet Allergies Allergy/AdvReac Type Severity Reaction Status Date / Time cephalexin [From Keflex] Allergy Intermediate Rash Verified 03/06/21 10:18 Review of Systems Review of Systems: All systems reviewed & are unremarkable except as noted in HPI and below Constitutional: Constitutional: Reports no additional constitutional complaints Eyes: Eyes: Reports no additional eye complaints ENT: Reports as per HPI Cardiovascular: Cardiovascular: Denies chest pain Respiratory: Respiratory: Denies dyspnea Gastrointestinal: Gastrointestinal: Reports no additional gastrointestinal complaints Musculoskeletal: Musculoskeletal: Denies back pain Neurologic: Reports as per HPI [facility] Past Medical History Medical History Abdominal cyst Abnormal ECG Abnormal echocardiogram Abnormal stress test Anxiety Cellulitis left leg Chronic kidney disease, stage 3 Depression Diabetes Diverticulitis DVT (deep venous thrombosis) GERD (gastroesophageal reflux disease) Hand fracture, right High cholesterol History of blood clots HIV (human immunodeficiency virus infection) Migraines Pneumonia Pulmonary embolism right lung Seizures Surgical History Surgical History H/O umbilical hernia repair 02/20/21 primary repair of incarcerated umbilical hernia History of hand surgery right Family History Family History Father Diabetes mellitus Heart disease High cholesterol Heart attack Mother Cancer Cervical cancer Sibling Brain cancer Other Cerebrovascular accident Hypertension Cancer Kidney disease Social History Social History Smoking packs per day: 1 Smoking cigarettes per day: 20.0 Years smoked: 22 Smoking pack-years: 22.00 Smoking status: Current every day smoker Tobacco type: cigarettes and e-cigarettes/vaping Smoking end date: 02/15/20 Additi
[2021-02-21] MEDS: diazePAM INJ (*CRX) 10 MG/2 ML SYRINGE 5 MG IM (20:07)
== END 2021-02-21 21:07 | disposition home or self-care (01) ==
PROVIDERS: Emergency Provider Emergency Medicine; PCP Nurse Practitioner Adult Health
DX: K14.8 Other diseases of tongue (principal); M54.2 Cervicalgia; Z98.890 Other specified postprocedural states; N18.30 Chronic kidney disease, stage 3 unspecified; E11.22 Type 2 diabetes mellitus with diabetic chronic kidney disease; F17.290 Nicotine dependence, other tobacco product, uncomplicated; E78.00 Pure hypercholesterolemia, unspecified; K21.9 Gastro-esophageal reflux disease without esophagitis; Z21 Asymptomatic human immunodeficiency virus [HIV] infection status; Z86.711 Personal history of pulmonary embolism; R94.31 Abnormal electrocardiogram [ECG] [EKG]; I45.9 Conduction disorder, unspecified
CPT/HCPCS: 93005; 96372; 99283; J3360

== ENCOUNTER 2021-04-03 11:59 | Observation (INO) | payer BC, MEDICAID, SELFPAY ==
[2021-04-03] VITALS (16 sets, daily range): BP systolic 111–133; BP diastolic 62–83; PULSE 80–98; RESP 12–22; TEMP 36.8; O2SAT 95–99; BMI 39.6
--- NOTE | ~2021-04-03 | XR_ITS ---
EXAMINATION: XR chest 2V DATE: 04/03/2021 12:28 INDICATION: Left chest pain. Shortness of breath. TECHNIQUE: Frontal and lateral views of the chest were obtained. COMPARISON: Chest single view 11/02/2020, 11/26/2019 FINDINGS: Calcified left lung nodules and calcified left hilar lymph nodes are consistent with old gr anulomatous disease. No pleural effusion or pneumothorax. The heart size is normal. IMPRESSION: 1. No acute cardiopulmonary disease. Reviewed, dictated and finalized at location A.
--- NOTE | 2021-04-03 11:56 | ECG_ITS ---
Measurements Intervals [place] Rate: 97 P: 35 CT: 155 QRS: -15 QRSD: 105 T: 28 QT: 330 QTc: 420 Interpretive Statements SINUS RHYTHM LEFT VENTRICULAR HYPERTROPHY AND ST-T CHANGE MINIMAL Q WAVES- HIGH LATERAL LEADS BORDERLINE ECG Electronically Signed On 04-03-2021 12:34:36 CDT by Jamshid Barreto D.O.
--- NOTE | 2021-04-03 12:27 | ED.CHESTPAIN ---
HPI - Chest Pain General Chief Complaint: Chest Pain Stated Complaint: CP Time Seen by Provider: 04/03/21 12:04 Source: RN notes reviewed History of Present Illness HPI narrative: Patient presents emergency department from home for left-sided chest pain. Patient states pain began at 830 this morning located left side of the chest described as sharp and stabbing. States pain rating the left posterior shoulder. Patient notes mild associated shortness of breath denies any fevers or chills abdominal pain nausea vomiting or other symptoms. States he does have a history of having abnormal EKGs and stress test but is not had a cardiac cath this is been done in [place] states he was given aspirin 3 and 24 mg Related Data Home Medications Medication Instructions Recorded Confirmed bupropion HCl [Wellbutrin XL] 300 mg PO DAILY 01/05/20 03/22/21 clonazepam 1 mg PO BID 01/05/20 03/22/21 montelukast [Singulair] 10 mg PO HS 01/05/20 03/22/21 valproic acid 750 mg PO Q12H 01/05/20 03/22/21 Pradaxa 150 mg PO BID 02/18/20 03/22/21 cholecalciferol (vitamin D3) 1,250 1,250 mcg PO WEEKLY 01/29/21 03/22/21 mcg (50,000 unit) capsule famotidine 20 mg tablet 20 mg PO BID 01/29/21 03/22/21 icosapent ethyl 1 gram capsule 2 g PO BID 01/29/21 03/22/21 lisinopril 10 mg tablet 10 mg PO DAILY 01/29/21 03/22/21 atorvastatin 10 mg tablet 10 mg PO DAILY 02/13/21 03/22/21 bictegravir 50 mg-emtricitabine 1 tablet PO HS 02/13/21 03/22/21 200 mg-tenofovir alafenam 25 mg tablet doravirine 100 mg tablet 100 mg PO HS 02/13/21 03/22/21 dulaglutide 0.75 mg/0.5 mL 0.75 mg SUBCUT WEEKLY 02/13/21 03/22/21 subcutaneous pen injector enoxaparin [Lovenox] 120 mg SUBCUT BID 02/14/21 03/22/21 levothyroxine 100 mcg PO DAILY 02/14/21 03/22/21 melatonin 10 mg PO HS 02/14/21 03/22/21 tizanidine 4 mg PO Q8H PRN 02/14/21 03/22/21 Allergies Allergy/AdvReac Type Severity Reaction Status Date / Time cephalexin [From Keflex] Allergy Intermediate Rash Verified 03/22/21 09:04 Review of Systems Review of Systems: Narrative: Gen.: Denies fevers or chills ENT: Denies congestion Respiratory: Reports shortness of breath CV: See HPI GI: Denies abdominal pain nausea, emesis or diarrhea denies burning, urgency, frequency or hematuria Musculoskeletal: Denies back pain or muscle pain Neuro: Denies numbness, tingling, weakness or focal weakness Skin: Denies rash Except as documented, all other systems reviewed and negative [facility] Past Medical History Medical History Abdominal cyst Abnormal ECG Abnormal echocardiogram Abnormal stress test Anxiety Cellulitis left leg Chronic kidney disease, stage 3 Depression Diabetes Diverticulitis DVT (deep venous thrombosis) GERD (gastroesophageal reflux disease) Hand fracture, right High cholesterol History of blood clots HIV (human immunodeficiency virus infection) Migraines Pneumonia Pulmonary embolism right lung Seizures Surgical History Surgical History H/O umbilical hernia repair 02/20/21 primary repair of incarcerated umbilical hernia History of hand surgery right Family History Family History Father Diabetes mellitus Heart disease High cholesterol Heart attack Mother Cancer Cervical cancer Sibling Brain cancer Other Cerebrovascular accident Hypertension Cancer Kidney disease Social History Social History (Updated 04/03/21 @ 12:29 by Sudeep Dangelo DO) Smoking packs per day: 1 Smoking cigarettes per day: 20.0 Years smoked: 22 Smoking pack-years: 22.00 Smoking status: Former smoker Tobacco type: cigarettes and e-cigarettes/vaping Smoking end date: 02/15/20 Additional smoking assessment comments: VAPING CURRENTLY - 1.8 NICOTINE LEVEL Alcohol intake: never Substance use: former Substance use type: mar
[2021-04-03 12:38] LABS: Basophils Absolute Auto 0.1 K/mm3 (0.0-0.1); Basophils Percent Auto 0.5 % (0.2-1.2); Eosinophils Absolute Auto 0.1 K/mm3 (0-0.3); Eosinophils Percent Auto 1.1 % (0-4.4); Hematocrit 45.3 % (42.0-52.0); Hemoglobin 15.4 g/dL (14.0-18.0); Immature Granulocyte Absolute 0.08 K/mm3 (0.00-0.031); Immature Granulocyte Percent A 0.8 % (0-0.5); Lymphocytes Percent Auto 32.5 % (18.3-44.2); Mean Corpuscular Hemoglobin 30.6 pg (26-34); Mean Corpuscular Volume 90.1 fl (80-100); Mean Platelet Volume 10.2 fl (7.4-10.4); Monocytes Percent Auto 9.8 % (2.6-8.5); Neutrophils Absolute Auto 5.5 K/mm3 (1.3-6.7); Neutrophils Percent Auto 55.3 % (45.5-73.1); Platelet Count Result 269 k/mm3 (150-375); Red Blood Count 5.03 M/mm3 (4.6-6.20); Red Cell Distribution Width 13.2 % (11.5-14.5); White Blood Count 9.9 K/mm3 (4.5-10.0)
[2021-04-03 12:51] LABS: INR 1.1; Prothrombin Time 14.6 Seconds (11.1-14.7)
[2021-04-03 12:52] LABS: Partial Thromboplastin Time 38.5 SECONDS (22.3-36.8)
[2021-04-03 12:55] LABS: Lipase 112 U/L (23-300)
[2021-04-03 12:56] LABS: Anion Gap 10 mmol/L (8-16); Blood Urea Nitrogen 13 mg/dL (9-20); Calcium 10.2 mg/dL (8.4-10.2); Carbon Dioxide 25 mmol/L (22-30); Chloride 106 mmol/L (98-107); Estimated CRCL calculation 99 ml/min; Estimated Glomerular Filt Rate 53; Glucose 103 mg/dL (75-110); Potassium 4.8 mmol/L (3.4-5.0); Sodium 141 mmol/L (137-145)
[2021-04-03 12:57] LABS: Alanine Aminotransferase 40 U/L (4-50); Albumin Level 4.5 g/dL (3.5-5.1); Alkaline Phosphatase 87 U/L (38-126); Aspartate Amino Transferase 34 U/L (17-59); Bilirubin,Total 0.3 mg/dL (0.2-1.3)
[2021-04-03 13:07] LABS: Troponin I < 0.012 ng/mL (0.000-0.034)
[2021-04-03 13:07] LABS: D Dimer 0.19 ug/mL (<0.48)
[2021-04-03] MEDS: MORPHINE SULFATE (*CRX) 4 MG/ML INJ IV PUSH (13:43)
--- NOTE | 2021-04-03 14:30 | PM.IMHP ---
H&P: HPI History of Present Illness Date/Time: 04/03/21 14:30 Chief Complaint: Left-sided chest pain. Narrative: This is a 35-year-old male with multiple medical problems including hypertension, dyslipidemia, history of DVT and pulmonary embolism on long-term Pradaxa, seizures, anxiety, hypothyroidism, and HIV who presented to the emergency department earlier today via EMS for evaluation of left-sided chest pain. 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 Sometime at work this morning he developed left anterior chest pain that he describes as sharp and stabbing in nature radiating somewhat into the left arm and shoulder. Associated symptoms included dizziness, hot flashes, diaphoresis, and shortness of breath. It has since become a heavy like sensation which did not improve with a GI cocktail or morphine. He does not recall injuring himself at work and he has not been having any such symptoms recently. He does note having chest pain a couple of years ago and had an abnormal EKG and stress test for which she saw a third cook at [facility]. He does not recall with the third cook said and he did not have a cardiac catheterization at that time. Currently he still has the heaviness in the left anterior chest. He denies palpitations, racing heart, and pleuritic pain. Mild lower extremity edema but that is unchanged. He denies calf pain and tenderness. It is noted that he was off of his Pradaxa sometime last month for a hernia repair but it does not sound as though he was off it for very long and he has been compliant with that. No known history of cardiac disease. Review of Systems Review of Systems: Narrative: Twelve systems were reviewed. No fever, chills, or sweats. No recent cold or flu symptoms. He denies exposure to those positive for COVID-19. No orthopnea or lower extremity edema. Endorses PND, heavy snoring, and daytime somnolence. Has never been tested for sleep apnea. No nausea or vomiting with his chest pain today. Except as documented, all other systems were reviewed and are negative. 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 Chronic kidney disease, stage 3 Deep venous thrombosis Depression Diverticulitis Dyslipidemia Gastroesophageal reflux disease History of drug abuse in remission Human immunodeficiency virus Hypothyroidism Migraines Nicotine dependence Pneumonia Pulmonary embolism Schizophrenia Seizures Type 2 diabetes mellitus Surgical History Surgical History (Updated 04/03/21 @ 20:05 by Merary Fernando PA-C) History of hand surgery Right hand. History of umbilical hernia repair (02/17/21) Primary repair of incarcerated umbilical hernia. Family History Family History Father Diabetes mellitus Heart disease High cholesterol Heart attack Mother Cancer Cervical cancer Sibling Brain cancer Other Cerebrovascular accident Hypertension Cancer Kidney disease Social History Social History (Updated 04/03/21 @ 20:06 by Merary Fernando PA-C) Social History: Surrogate decision maker: Desiree Escalante, mother. Code status: Full code. Smoking packs per day: 1 Smoking cigarettes per day: 20.0 Years smoked: 22 Smoking pack-years: 22.00 Smoking status: Never smoker Tobacco type: cigarettes and e-cigarettes/vaping Smoking end date: 02/15/20 Additional smoking assessment comments: VAPING CURRENTLY - 1.8 NICOTINE LEVEL. Alcohol intake: never Alcohol use details: Former heavy drinker. None in over 4 years. Substance use: former Substance use type: marijuana, crack/cocaine and methamphetamine Other substance usage details: NO SUBSTANCE ABUSE FOR 1 YEAR Last use: 09/2019 Additional seema
[2021-04-03 15:29] LABS: Troponin I < 0.012 ng/mL (0.000-0.034)
--- NOTE | 2021-04-03 15:38 | ADMIMU ---
This patient, Patrice Escalante, was admitted to IMU status, and placed in Intensive Care Unit-5. Patient/family oriented to hospital policies and general routines including ID bracelet, bed and alarms, visiting hours, pain management, procedures, bathroom and other care routines, personal items, smoking policy, room service/diet, and visiting hours. Valuables list has been completed. Information on how to activate the Rapid Response Team has been discussed. Patient/Family are encouraged to report perceived risks to care and to ask questions if they do not understand what they are told or what they should do.
[2021-04-03 17:54] LABS: Troponin I < 0.012 ng/mL (0.000-0.034)
--- NOTE | 2021-04-03 18:23 | PC.NURSE ---
Spoke with VEDA Sun regarding patient having increase chest pain. Rated it at a 3 on admission, now rating it at a 6. Pressure on the left side of chest. VS stable: P: 85, 95%, R: 35, BP: 122/68. New order to obtain 12 lead EKG and give Nitro
--- NOTE | 2021-04-03 18:24 | ECG_ITS ---
Measurements Intervals [place] Rate: 88 P: 38 CT: 170 QRS: -14 QRSD: 118 T: 40 QT: 355 QTc: 430 Interpretive Statements SINUS RHYTHM INTRAVENTRICULAR CONDUCTION DELAY VOLTAGE CRITERIA FOR LVH MINIMAL Q WAVES- HIGH LATERAL LEADS BORDERLINE ECG Electronically Signed On 04-03-2021 20:12:40 CDT by Jamshid Barreto D.O.
[2021-04-03] MEDS: NITROGLYCERIN SL 0.4 MG TABLET SUBLINGUAL (18:33)
[2021-04-03] MEDS: ACETAMINOPHEN 325 MG TABLET 650 MG PO (18:50)
--- NOTE | 2021-04-03 20:25 | PHAR ---
Home medication identified in pharmacy and returned to RN at window. Pifeltro 100mg tablets, Biktarvy tablets
[2021-04-03] MEDS: DABIGATRAN ETEXILATE 150 MG CAPSULE PO (21:17)
[2021-04-03] MEDS: clonazePAM (*CRX) 0.5 MG TABLET PO (21:17)
[2021-04-03] MEDS: MELATONIN 5 MG TABLET 10 MG PO (21:18)
[2021-04-03] MEDS: FAMOTIDINE 20 MG TABLET PO (21:18)
[2021-04-03] MEDS: ATORVASTATIN 10 MG TABLET PO (21:18)
[2021-04-03] MEDS: OMEGA 3 POLYUNSAT FATTY ACIDS 1 GM CAP 2 GM PO (21:18)
[2021-04-03] MEDS: MONTELUKAST SODIUM 10 MG TABLET PO (21:19)
[2021-04-03 21:27] LABS: Glucose Point of Care 100 mg/dl (65-105)
[2021-04-04] VITALS (12 sets, daily range): BP systolic 109–135; BP diastolic 51–75; PULSE 58–86; RESP 12–20; TEMP 36–37; O2SAT 96–100
[2021-04-04 06:42] LABS: Basophils Percent Auto 0.3 % (0.2-1.2); Eosinophils Absolute Auto 0.1 K/mm3 (0-0.3); Eosinophils Percent Auto 1.6 % (0-4.4); Hematocrit 42.8 % (42.0-52.0); Hemoglobin 14.2 g/dL (14.0-18.0); Immature Granulocyte Absolute 0.03 K/mm3 (0.00-0.031); Immature Granulocyte Percent A 0.4 % (0-0.5); Lymphocytes Absolute Auto 2.83 K/mm3 (0.9-3.2); Lymphocytes Percent Auto 41.6 % (18.3-44.2); Mean Corpuscular HGB Conc 33.2 g/dl (32-36); Mean Corpuscular Hemoglobin 30.3 pg (26-34); Mean Corpuscular Volume 91.5 fl (80-100); Mean Platelet Volume 10.4 fl (7.4-10.4); Monocytes Absolute Auto 0.8 K/mm3 (0.1-0.6); Monocytes Percent Auto 11.2 % (2.6-8.5); Neutrophils Absolute Auto 3.1 K/mm3 (1.3-6.7); Neutrophils Percent Auto 44.9 % (45.5-73.1); Platelet Count Result 222 k/mm3 (150-375); Red Blood Count 4.68 M/mm3 (4.6-6.20); Red Cell Distribution Width 13.5 % (11.5-14.5); White Blood Count 6.8 K/mm3 (4.5-10.0)
[2021-04-04 06:54] LABS: Alanine Aminotransferase 34 U/L (4-50); Alkaline Phosphatase 72 U/L (38-126); Anion Gap 6 mmol/L (8-16); Aspartate Amino Transferase 32 U/L (17-59); Bilirubin,Total 0.3 mg/dL (0.2-1.3); Blood Urea Nitrogen 15 mg/dL (9-20); Calcium 9.2 mg/dL (8.4-10.2); Carbon Dioxide 29 mmol/L (22-30); Chloride 103 mmol/L (98-107); Estimated CRCL calculation 111 ml/min; Estimated Glomerular Filt Rate > 60; Glucose 110 mg/dL (75-110); Potassium 4.2 mmol/L (3.4-5.0); Sodium 138 mmol/L (137-145)
[2021-04-04 07:40] LABS: Valproic Acid 54.5 ug/mL (50-120)
[2021-04-04] MEDS: clonazePAM (*CRX) 0.5 MG TABLET PO ×3 (07:59→22:14)
[2021-04-04] MEDS: PANTOPRAZOLE 40 MG TABLET PO (08:00)
[2021-04-04] MEDS: lisinopriL 10 MG TABLET PO (08:00)
[2021-04-04] MEDS: DABIGATRAN ETEXILATE 150 MG CAPSULE PO ×2 (08:00→22:15)
[2021-04-04] MEDS: FAMOTIDINE 20 MG TABLET PO ×2 (08:00→22:20)
[2021-04-04] MEDS: OMEGA 3 POLYUNSAT FATTY ACIDS 1 GM CAP 2 GM PO ×2 (08:00→22:14)
[2021-04-04] MEDS: LEVOTHYROXINE SODIUM 100 MCG TABLET PO (08:00)
[2021-04-04 08:14] LABS: Glucose Point of Care 102 mg/dl (65-105)
[2021-04-04 08:32] LABS: Hemoglobin A1C 5.5 % (<5.7)
[2021-04-04] MEDS: IBUPROFEN 600 MG TABLET PO (12:14)
[2021-04-04 12:18] LABS: Glucose Point of Care 87 mg/dl (65-105)
--- NOTE | 2021-04-04 12:41 | PM.CNCAR ---
Assessment and Plan Assessment and plan (1) Chest pain: Code(s): R07.9 - Chest pain, unspecified Status: Acute Assessment and Plan: Atypical, reproducible on examination ruled out for myocardial infarction with negative serial cardiac enzymes, no ischemic EKG changes, unremarkable echocardiogram without wall motion abnormalities and preserved LV systolic function. Pain management for musculoskeletal, reproducible chest pain. No improvement with nitrates. Follow-up with PCP as outpatient. Will review prior cardiac records when available. Ibuprofen 600 mg p.o. x1 observe response. Generally, would advise avoidance of NSAID therapy due to chronic anticoagulation to avoid risk for bleeding and GI upset. Take a full glass of water and food. Given the highly atypical nature patient's symptoms, negative serial troponins, unremarkable EKGs and persistent chest pain for greater than 24 hours also supporting noncardiac etiology disease no further ischemic evaluation warranted at this time. Disposition per hospitalist service. Please do not hesitate to contact us with additional questions or concerns. Furthermore, patient had already eaten today so ischemic evaluation would not be possible as an inpatient today. (2) Hypertension: Qualifiers: Hypertension type: essential hypertension Qualified Code(s): I10 - Essential (primary) hypertension Code(s): I10 - Essential (primary) hypertension Status: Acute Assessment and Plan: This time. Continue medical therapy.. (3) Suspected sleep apnea: Code(s): R29.818 - Other symptoms and signs involving the nervous system Status: Acute Assessment and Plan: Apnea link abnormal AHI 27 strongly suggestive of clinically significant JOSE EDUARDO. Outpatient referral for sleep study. (4) Chronic anticoagulation: Code(s): Z79.01 - assisted (current) use of anticoagulants Status: Acute Assessment and Plan: Continue Pradaxa 150 mg p.o. q.12 hours. Follow-up with prescribing physician for management of history of DVT and PE in the past. D-dimer negative. No indication for thromboembolic workup as he has been on consistent systemic anticoagulation without interruption and with a negative D-dimer. History of Present Illness History of Present Illness Consult date/time: Date of service: 04/04/21 12:41 Cardiology consultation at the request of Merary Fernando of the [facility] service for opinion regarding chest pain. Requesting physician: Merary Fernando PA-C Consult reason: chest pain Reason For Visit: chest pain Narrative: Patient is a 35-year-old male with past medical history significant for hypertension, dyslipidemia, history of DVT and PE on Pradaxa long-term anticoagulation, seizure disorder, anxiety, hypothyroidism, and HIV with history of chronic recurrent chest pain who was at work yesterday morning at [employer] and developed left-sided chest pain initially described as a sharp and stabbing pain radiating to the left upper shoulder and arm intermittent dizziness, feeling warm sweaty and occasional shortness of breath. Chest pain then developed into a milder pressure or heaviness sensation which has been constant waxing and waning intensity for greater than 24 hours. Was given nitroglycerin with no response other than a severe headache. He was given GI cocktail and morphine without improvement. Was then given Tylenol which he states had improved his chest pain as a fell asleep and woke much improved. He has mild discomfort at this time. He denies recent illnesses, fevers, chills,, falls, or known trauma. Reports having chest pain similar to this several years ago for which he underwent a stress test then was referred to a glue maker bone to did not feel further pursue was necessary nor ongoing follow-up was required per his recollection of these records are not available at present. He has no known history of coronary disease, myocard
--- NOTE | 2021-04-04 14:19 | PM.IMPN ---
Progress Note: A&P Assessment and Plan (1) Chest pain: Code(s): R07.9 - Chest pain, unspecified Status: Acute Assessment and Plan: Most likely atypical, negative Trop , EKG continue to monitor night overnight. (2) Nicotine dependence: Code(s): F17.200 - Nicotine dependence, unspecified, uncomplicated Status: Acute Assessment and Plan: Pt advised to quit smoking (3) Suspected sleep apnea: Code(s): R29.818 - Other symptoms and signs involving the nervous system Status: Acute Assessment and Plan: CPAP at night (4) Type 2 diabetes mellitus: Code(s): E11.9 - Type 2 diabetes mellitus without complications Status: Acute Assessment and Plan: Accuchecks, SSI (5) Hypertension: Qualifiers: Hypertension type: essential hypertension Qualified Code(s): I10 - Essential (primary) hypertension Code(s): I10 - Essential (primary) hypertension Status: Acute Assessment and Plan: Watch Bp while in hospital. (6) Dyslipidemia: Code(s): E78.5 - Hyperlipidemia, unspecified Status: Inactive Assessment and Plan: Pt is on a statin (7) Chronic kidney disease, stage 3: Code(s): N18.30 - Chronic kidney disease, stage 3 unspecified Status: Inactive Assessment and Plan: WAtch BMP (8) Chronic anticoagulation: Code(s): Z79.01 - watermelon inspector (current) use of anticoagulants Status: Acute (9) Hypothyroidism: Code(s): E03.9 - Hypothyroidism, unspecified Status: Acute (10) Human immunodeficiency virus: Code(s): B20 - Human immunodeficiency virus [HIV] disease Status: Acute Assessment and Plan: PT os on his own medications vascepa Subjective Date/time seen: 04/04/21 14:19 Interval history: 35-year-old male with multiple medical problems including hypertension, dyslipidemia, history of DVT and pulmonary embolism on long-term Pradaxa, seizures, anxiety, hypothyroidism, and HIV who presented to the emergency department earlier today via EMS for evaluation of left-sided chest pain. Pt seen by cardiology continue to watch overnight Review of Systems Review of Systems: All systems reviewed & are unremarkable except as noted in HPI and below Exam Narrative: Exam Narrative: General: Well-developed male HEENT: Normocephalic. Neck: Supple. Exam difficult due to neck circumference. Respiratory: Lungs are clear to auscultation bilaterally. Cardiovascular: Regular rate and rhythm with S1-S2. Gastrointestinal: Abdomen is soft, obese, nontender, and nondistended with positive bowel sounds. Skin: Warm and dry. Several tattoos. Extremities: No cyanosis, clubbing, or significant edema. Neurological: Alert. Cranial nerves 2-12 are grossly intact. No gross focal deficits to casual conversation. Psychiatric: Appropriate mood. Slightly anxious. Objective Data Vital Signs Vital Signs: Vital Signs - 24 hr 04/03/21 15:00 04/03/21 16:00 04/03/21 18:00 Temperature 36.8 C Pulse Rate 91 93 93 Respiratory Rate 14 19 Blood Pressure 133/76 111/74 Pulse Oximetry 99 96 04/03/21 19:46 04/03/21 20:00 04/03/21 22:00 Temperature Pulse Rate 94 98 80 Respiratory Rate 14 22 H Blood Pressure 125/62 Pulse Oximetry 95 97 04/03/21 23:41 04/04/21 00:00 04/04/21 02:00 Temperature Pulse Rate 80 81 84 Respiratory Rate 22 H 15 Blood Pressure 135/72 Pulse Oximetry 96 96 04/04/21 04:00 04/04/21 04:34 04/04/21 06:00 Temperature 36.7 C Pulse Rate 68 62 60 Respiratory Rate 17 15 Blood Pressure 109/73 Pulse Oximetry 96 04/04/21 08:00 04/04/21 10:00 04/04/21 12:00 Temperature 36.5 C 36.8 C Pulse Rate 72 63 58 L Respiratory Rate 17 12 Blood Pressure 133/75 122/59 L Pulse Oximetry 100 100 Intake/Output Intake/Output: Intake & Output 04/01/21 04/02/21 04/03/21 04/04/21 23:59 23:59 23:59 23:59 Intake Total
[2021-04-04 17:19] LABS: Glucose Point of Care 105 mg/dl (65-105)
--- NOTE | 2021-04-04 17:21 | PC.NURSE ---
This patient, Patrice Escalante, was received from [ICU] on 04/04/21 at 1710. Patient/family oriented to unit policies and routines
--- NOTE | 2021-04-04 17:23 | PC.NURSE ---
This patient, Patrice Escalante, was transferred to [[id number] ] on 04/04/21 at 1700. Personal belongings sent with patient. Report given to [AMRIK Zepeda @ [id number] ]. Appropriate documentation sent with patient. Home meds sent with patient
--- NOTE | 2021-04-04 20:12 | ECHO_ITS ---
Patient Info Name: Patrice Escalante Age: 35 years : 1985 Gender: Male Ht: 76 in Wt: 326 lbs BSA: 2.87 m2 HR: 74 bpm BP: 109 / 73 mmHg Technical Quality: Good Exam Date: 04/04/2021 8:36 AM Exam Location: [facility] Patient Status: Inpatient Admit Date: 04/03/2021 Staff Ordering Physician: Merary Fernando PA-C Baby Sitter: Jose Osuna RDCS, RT Attending Provider: Ashly Rachel MD Referring Physician: Abdullahi SEGOVIA; Exam Type: CA echo dop color flow w con Study Info Indications I10 - Essential (primary) hypertension R07.89 - Other chest pain Complete two-dimensional, color flow and Doppler transthoracic echocardiogram is performed with contrast to opacify the left ventricle and to improve the deliniation of the left ventricle endocardial borders. Strain analysis performed. Summary 1. Left ventricular chamber dimension is normal. 2. Left ventricular systolic function is normal, estimated at 60-65%. 3. There is mildly increased left ventricular wall thickness. 4. There is trace mitral valve regurgitation. Left Ventricle Left ventricular chamber dimension is normal. Left ventricular systolic function is normal, estimated at 60-65%. There is mildly increased left ventricular wall thickness. Left ventricular septal wall motion is normal. The left ventricular diastolic function is indeterminate. Right Ventricle Right ventricular chamber dimension is normal. Right ventricular systolic function is normal. Left Atria Left atrial chamber dimension is normal. Right Atria Right atrial chamber dimension is normal. Aortic Valve The aortic valve is trileaflet. There is no aortic valve sclerosis. There is no aortic valve stenosis. There is no aortic valve regurgitation. Pulmonic Valve The pulmonic valve is normal. There is no pulmonic valve stenosis. There is no pulmonic regurgitation. Mitral Valve The mitral valve has normal leaflets. There is no mitral valve stenosis. There is trace mitral valve regurgitation. Tricuspid Valve The tricuspid valve leaflets are normal. There is no significant tricuspid valve stenosis. There is no tricuspid valve regurgitation. Pericardium/Pleural The pericardium appears normal. There is no pericardial effusion. Inferior Vena Cava Normal inferior vena cava with >50% collapse upon inspiration consistent with normal right atrial pressure, 5 mmHg. Aorta The aortic root size at the sinus of Valsalva is normal. The prox ascending aorta size is normal. Left Ventricular Outflow Tract Name Value Normal LVOT 2D LVOT Diameter 2.15 cm LVOT Doppler LVOT Peak Gradient 3 mmHg LVOT Mean Gradient 2 mmHg LVOT VTI 20.93 cm LVOT VTI/AV VTI Ratio 0.88 LVOT Stroke Volume 75.78 ml LVOT CO 4.49 l/min LVOT CI 1.56 L/min/m2 Mitral Valve Name
[2021-04-04 22:03] LABS: Glucose Point of Care 98 mg/dl (65-105)
[2021-04-04] MEDS: MELATONIN 5 MG TABLET 10 MG PO (22:14)
[2021-04-04] MEDS: MONTELUKAST SODIUM 10 MG TABLET PO (22:14)
[2021-04-04] MEDS: ATORVASTATIN 10 MG TABLET PO (22:14)
[2021-04-04] MEDS: TIZANIDINE HCL 4 MG TABLET PO (22:17)
--- NOTE | 2021-04-05 00:07 | ECG_ITS ---
Measurements Intervals [place] Rate: 72 P: 47 IL: 173 QRS: -14 QRSD: 117 T: 21 QT: 388 QTc: 427 Interpretive Statements SINUS RHYTHM INTRAVENTRICULAR CONDUCTION DELAY VOLTAGE CRITERIA FOR LVH MINIMAL Q WAVES- HIGH LATERAL LEADS BORDERLINE ECG Electronically Signed On 04-05-2021 6:38:05 CDT by Jamshid Barreto D.O.
[2021-04-05] MEDS: LORazepam INJ (*CRX) 2 MG/ML VIAL 0.5 MG IV PUSH (00:19)
[2021-04-05 01:04] LABS: Troponin I < 0.012 ng/mL (0.000-0.034)
[2021-04-05 04:16] LABS: Anion Gap 7 mmol/L (8-16); Blood Urea Nitrogen 13 mg/dL (9-20); Carbon Dioxide 29 mmol/L (22-30); Chloride 103 mmol/L (98-107); Estimated CRCL calculation 120 ml/min; Estimated Glomerular Filt Rate > 60; Glucose 140 mg/dL (75-110); Potassium 4.2 mmol/L (3.4-5.0); Sodium 139 mmol/L (137-145)
[2021-04-05 04:28] LABS: Troponin I < 0.012 ng/mL (0.000-0.034)
[2021-04-05] MEDS: LEVOTHYROXINE SODIUM 100 MCG TABLET PO (05:54)
[2021-04-05 07:20] VITALS: BP 116/64; PULSE 76; RESP 20; TEMP 36.6; O2SAT 98
[2021-04-05 08:30] LABS: Glucose Point of Care 99 mg/dl (65-105)
[2021-04-05] MEDS: DABIGATRAN ETEXILATE 150 MG CAPSULE PO (08:39)
[2021-04-05] MEDS: FAMOTIDINE 20 MG TABLET PO (08:39)
[2021-04-05] MEDS: OMEGA 3 POLYUNSAT FATTY ACIDS 1 GM CAP 2 GM PO (08:40)
[2021-04-05] MEDS: lisinopriL 10 MG TABLET PO (08:41)
[2021-04-05] MEDS: clonazePAM (*CRX) 0.5 MG TABLET PO ×2 (08:47→11:46)
[2021-04-05] MEDS: PANTOPRAZOLE 40 MG TABLET PO (08:47)
--- NOTE | 2021-04-05 10:21 | PM.PNCARD ---
Progress Note: A&P Assessment and Plan (1) Chest pain: Code(s): R07.9 - Chest pain, unspecified Status: Acute Assessment and Plan: Atypical, reproducible on examination ruled out for myocardial infarction with negative serial cardiac enzymes, no ischemic EKG changes, unremarkable echocardiogram without wall motion abnormalities and preserved LV systolic function. Pain management for musculoskeletal, reproducible chest pain. No improvement with nitrates. Follow-up with PCP as outpatient. Will review prior cardiac records when available. Ibuprofen 600 mg p.o. x1 observe response. Generally, would advise avoidance of NSAID therapy due to chronic anticoagulation to avoid risk for bleeding and GI upset. Take a full glass of water and food. Given the highly atypical nature patient's symptoms, negative serial troponins, unremarkable EKGs and persistent chest pain for greater than 24 hours also supporting noncardiac etiology disease no further ischemic evaluation warranted at this time. Disposition per hospitalist service. Please do not hesitate to contact us with additional questions or concerns. Furthermore, patient had already eaten today so ischemic evaluation would not be possible as an inpatient today. (2) Hypertension: Qualifiers: Hypertension type: essential hypertension Qualified Code(s): I10 - Essential (primary) hypertension Code(s): I10 - Essential (primary) hypertension Status: Acute Assessment and Plan: Well controlled at this time. Continue medical therapy.. (3) Suspected sleep apnea: Code(s): R29.818 - Other symptoms and signs involving the nervous system Status: Acute Assessment and Plan: Apnea link abnormal AHI 27 strongly suggestive of clinically significant JOSE EDUARDO. Outpatient referral for sleep study. 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 q.12 hours. Follow-up with prescribing physician for management of history of DVT and PE in the past. D-dimer negative. No indication for thromboembolic workup as he has been on consistent systemic anticoagulation without interruption and with a negative D-dimer. Subjective Date/time seen: Follow up for chest pain Date of service 04/05/21 10:22: Patient feels well today. States he is concerned about returning to work due to heavy lifting requirements. He is free from any cardiovascular complaints including chest pain, palpitations, shortness of breath. He is to be discharged today her hospitalist service. Interval history: 35-year-old male with multiple medical problems including hypertension, dyslipidemia, history of DVT and pulmonary embolism on long-term Pradaxa, seizures, anxiety, hypothyroidism, and HIV who presented to the emergency department earlier today via EMS for evaluation of left-sided chest pain. Pt seen by cardiology continue to watch overnight Review of Systems Review of Systems: All systems reviewed & are unremarkable except as noted in HPI and below Constitutional: Constitutional: Reports as per HPI and Reports no additional constitutional complaints Eyes: Eyes: Reports as per HPI and Reports no additional eye complaints ENT: Reports system reviewed and no additional complaints, except as documented and Reports as per HPI Cardiovascular: Cardiovascular: Reports as per HPI, Reports no additional cardiovascular complaints, Denies chest pain, Denies palpitations and Reports dyspnea Respiratory: Respiratory: Reports as per HPI, Reports no additional respiratory complaints and Denies dyspnea Gastrointestinal: Gastrointestinal: Reports as per HPI, Reports no additional gastrointestinal complaints, Denies diarrhea, Denies nausea and Denies vomiting Genitourinary: Genitourinary: Reports no additional male genitourinary complaints and Reports as per HPI Musculoskelet
[2021-04-05 11:51] LABS: Glucose Point of Care 143 mg/dl (65-105)
--- NOTE | 2021-04-05 12:29 | PM.DS ---
DS: Admitting Diagnosis Admitting Diagnosis Admitting Diagnosis: Left-sided chest pain. DS: Discharge Diagnosis Discharge Diagnosis (1) Chest pain: Code(s): R07.9 - Chest pain, unspecified Status: Acute Assessment and Plan: Most likely atypical, negative Trop, no ischemic EKG changes, unremarkable echocardiogram without wall motion abnormalities and preserved LV systolic function. Pain management for musculoskeletal or anxiety related, pt informed of that. No need for further ischemic work up at this stage. Pt elliot follow with his psychiatrist felt better in the hospital when anxiety medications were given. (2) Nicotine dependence: Code(s): F17.200 - Nicotine dependence, unspecified, uncomplicated Status: Acute Assessment and Plan: Pt advised to quit smoking (3) Suspected sleep apnea: Code(s): R29.818 - Other symptoms and signs involving the nervous system Status: Acute Assessment and Plan: CPAP at night (4) Type 2 diabetes mellitus: Code(s): E11.9 - Type 2 diabetes mellitus without complications Status: Acute Assessment and Plan: Accuchecks, SSI (5) Hypertension: Qualifiers: Hypertension type: essential hypertension Qualified Code(s): I10 - Essential (primary) hypertension Code(s): I10 - Essential (primary) hypertension Status: Chronic Assessment and Plan: BP is stable (6) Dyslipidemia: Code(s): E78.5 - Hyperlipidemia, unspecified Status: Inactive Assessment and Plan: Pt is on a statin (7) Chronic kidney disease, stage 3: Code(s): N18.30 - Chronic kidney disease, stage 3 unspecified Status: Inactive Assessment and Plan: creat at baseline of 1.2 (8) Chronic anticoagulation: Code(s): Z79.01 - 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 Pain management for musculoskeletal or anxiety related, pt informed of that. No need for further ischemic work up at this stage. Pt elliot follow with his psychiatrist felt better in the hospital when anxiety medications were given. Time Spent with Patient Time attestation: Total time spent providing and/or coordinating discharge services: Exam Narrative: Exam Narrative: General: Well-developed male HEENT: Normocephalic. Neck: Supple. Exam difficult due to neck circumference. Respiratory: Lungs are clear to auscultation bilaterally. Cardiovascular: Regular rate and rhythm with S1-S2. Gastrointestinal: Abdomen is soft, obese, nontender, and nondistended with positive bowel sounds. Skin: Warm and dry. Several tattoos. Extremities: No cyanosis, clubbing, or significant edema. Neurological: Alert. Cranial nerves 2-12 are grossly intact. No gross focal deficits to casual conversation. Psychiatric: Appropriate mood. Slightly anxious. DS: Data Data Completed and Pending Labs on day of discharge: Labs from last 24 hours 04/05/21 04/05/21 04/05/21 11:40 08:08 03:50 Sodium 139 Potassium 4.2 Chloride 103 Carbon Dioxide 29 Anion Gap 7 L BUN 13 Creatinine 1.20 Estim Creat Clear Calc 120 Estimated GFR > 60 Glucose 140 H POC Capillary Glucose 143 H 99 Calcium 9.0 Troponin I < 0.012 04/05/21 04/04/21 04/04/21 00:30 20:24 17:10 Sodium Potassium Chloride Carbon Dioxide Anion Gap BUN Creatinine Estim Creat Clear Calc Est
== END 2021-04-05 13:31 | disposition home or self-care (01) ==
LOC: ANHED 13:57 → ANHICU 15:36 → ANH3MEDSUR 04-05 10:22 → ANHICU 04-09 13:32
PROVIDERS: Emergency Medicine; Internal Medicine; Physician Assistant; Admitting Provider Hospitalist; Emergency Provider Emergency Medicine; PCP Nurse Practitioner Adult Health; Visit Provider Family Medicine
DX: R07.9 Chest pain, unspecified (principal); R29.818 Other symptoms and signs involving the nervous system; E78.5 Hyperlipidemia, unspecified; I12.9 Hypertensive chronic kidney disease with stage 1 through stage 4 chronic kidney disease, or unspecified chronic kidney disease; N18.30 Chronic kidney disease, stage 3 unspecified; E11.22 Type 2 diabetes mellitus with diabetic chronic kidney disease; E03.9 Hypothyroidism, unspecified; R06.02 Shortness of breath; F17.290 Nicotine dependence, other tobacco product, uncomplicated; R07.89 Other chest pain; Z21 Asymptomatic human immunodeficiency virus [HIV] infection status; Z86.711 Personal history of pulmonary embolism; Z86.718 Personal history of other venous thrombosis and embolism; Z79.01 Long term (current) use of anticoagulants; Z79.4 Long term (current) use of insulin
CPT/HCPCS: 36415; 71046; 80048; 80076; 80164; 82948; 83036; 83690; 83735; 84443; 84484; 85025; 85380; 85610; 85730; 93005; 94762; 96374; 96375; 99285; A9270; C8929; G0378; J2060; J2270; Q9957

== ENCOUNTER 2021-08-07 15:36 | Observation (INO) | payer BC, MEDICAID, SELFPAY ==
--- NOTE | ~2021-08-07 | XR_ITS ---
EXAMINATION: XR chest 2V 08/07/2021 16:01 INDICATION: Chest tightness and shortness of breath PROCEDURE: 2 view chest COMPARISON: Comparison to multiple prior studies sequentially, with oldest reviewed study dated 06/2020. FINDINGS: The lungs are clear. The cardiomediastinal silhouette is within normal limits. There are no pleural effusions. There is no pneumothorax suspected. There are calcified granulomas in the lef t midlung. IMPRESSION: 1: NO ACUTE CARDIOPULMONARY DISEASE. Reviewed, dictated and finalized at location A.
--- NOTE | ~2021-08-07 | CT_ITS ---
EXAMINATION: CTA chest PE protocol DATE: 08/07/2021 17:28 INDICATION: TECHNIQUE: Computed tomography angiography (CTA) of the chest was performed with 100 mL Omnipaque-350 intravenous contrast timed to evaluate the pulmonary arteries. Coronal maximum intensity projection 3D-reconstructions were created by the technologist. Automated exposure control and iterative reconst ruction technique were employed. Exam dose: 1059.97 mGy-cm total exam DLP. COMPARISON: None. FINDINGS: There is diagnostic contrast enhancement of the pulmonary arteries on the second injection. There is no evidence of pulmonary embolism. No thoracic aortic aneurysm or dissection. No hilar or mediastinal mass lesion or lymphadenopathy. Heart size. No pericardial or pleural effusion. There is mild discoid atelectasis or scarring at the posterior lung bases. No pulmonary consolidation . There are calcified granulomas in the left upper lobe. Diffuse hepatic steatosis. The gallbladder is present. No bile duct dilatation. Normal morphology of the adrenal glands. No suspicious osteolytic or osteoblastic lesions. IMPRESSION: No evidence of pulmonary embolism Hepatic steatosis Reviewed, dictated and finalized at Location A. Reviewed, dictated and finalized at location A.
--- NOTE | ~2021-08-07 | NM_ITS ---
EXAMINATION: NM deneen stress w perfusion DATE: 08/08/2021 12:59 INDICATION: Chest pain. TECHNIQUE: Rest images were obtained following intravenous administration of 11.3 mCi Tc99m tetrofosm in (Myoview). The patient was infused intravenously with Lexiscan (regadenoson). Then, 33.8 mCi Tc99m tetrofosmin (Myoview) was administered intravenously, and stress images were obtained. Data was kal nstructed into short axis and horizontal and vertical long axis SPECT images. Gated SPECT images were also obtained. COMPARISON: Chest CT 08/07/2021 FINDINGS: There is no definite reversible or fixed perfusion abnormality to suggest ischemia or infar ction. There is no segmental wall motion abnormality. Left ventricular ejection fraction measures 6 5%. IMPRESSION: 1. No definite ischemia or infarct. 2. Normal left ventricular ejection fraction measuring 65%. Reviewed, dictated and finalized at location A.
--- NOTE | 2021-08-07 15:38 | ECG_ITS ---
Measurements Intervals [place] Rate: 105 P: 32 MD: 158 QRS: -29 QRSD: 104 T: 38 QT: 332 QTc: 440 Interpretive Statements SINUS TACHYCARDIA POOR R WAVE PROGRESSION, ANTERIOR LEADS BORDERLINE ECG Electronically Signed On 08-07-2021 16:06:32 CDT by Jamshid Barreto D.O.
[2021-08-07 15:40] VITALS: BP 131/78; PULSE 117; RESP 18; TEMP 36.9; O2SAT 98
[2021-08-07 16:00] LABS: Basophils Percent Auto 0.4 % (0.2-1.2); Eosinophils Absolute Auto 0.1 K/mm3 (0-0.3); Eosinophils Percent Auto 0.9 % (0-4.4); Hematocrit 45.2 % (42.0-52.0); Hemoglobin 15.7 g/dL (14.0-18.0); Immature Granulocyte Absolute 0.07 K/mm3 (0.00-0.031); Immature Granulocyte Percent A 0.7 % (0-0.5); Lymphocytes Absolute Auto 2.98 K/mm3 (0.9-3.2); Lymphocytes Percent Auto 31.1 % (18.3-44.2); Mean Corpuscular HGB Conc 34.7 g/dl (32-36); Mean Corpuscular Hemoglobin 30.9 pg (26-34); Mean Platelet Volume 10.2 fl (7.4-10.4); Monocytes Absolute Auto 0.8 K/mm3 (0.1-0.6); Monocytes Percent Auto 8.4 % (2.6-8.5); Neutrophils Absolute Auto 5.6 K/mm3 (1.3-6.7); Neutrophils Percent Auto 58.5 % (45.5-73.1); Platelet Count Result 281 k/mm3 (150-375); Red Blood Count 5.08 M/mm3 (4.6-6.20); Red Cell Distribution Width 12.9 % (11.5-14.5); White Blood Count 9.6 K/mm3 (4.5-10.0)
[2021-08-07 16:11] LABS: Anion Gap 11 mmol/L (8-16); Blood Urea Nitrogen 11 mg/dL (9-20); Calcium 9.7 mg/dL (8.4-10.2); Carbon Dioxide 24 mmol/L (22-30); Chloride 103 mmol/L (98-107); Estimated CRCL calculation 149 ml/min; Estimated Glomerular Filt Rate > 60; Glucose 124 mg/dL (65-110); Potassium 4.5 mmol/L (3.4-5.0); Sodium 138 mmol/L (137-145)
[2021-08-07 16:13] LABS: Partial Thromboplastin Time 30.5 SECONDS (22.3-36.8); Prothrombin Time 12.8 Seconds (11.1-14.7)
[2021-08-07 16:21] LABS: Troponin I < 0.012 ng/mL (0.000-0.034)
[2021-08-07 16:25] VITALS: BP 118/75; PULSE 105; RESP 26; O2SAT 97
[2021-08-07] MEDS: ASPIRIN 81 MG CHEWABLE TABLET 324 MG PO (16:35)
--- NOTE | 2021-08-07 16:42 | ED.CHESTPAIN ---
HPI - Chest Pain General Chief Complaint: Chest Pain Stated Complaint: tight chest Time Seen by Provider: 08/07/21 16:39 Source: patient Mode of arrival: ambulatory Limitations: no limitations History of Present Illness HPI narrative: Patient 36 years old white male presented to the ED by ambulance with cough complaining of chest tightness, shortness of breath and vomiting started at the 6-hour ago after trying to change the car battery. Currently pain is 9 out of 10, mainly on the right side of the chest, associated with shortness of breath, worse on slight exertion. History of pulmonary embolism on Pradaxa for the last 4 years, history of hypertension, hyperlipidemia, family history of coronary artery disease. Patient was seen recently by a greenhouse instructor who scheduled him for nuclear stress test next month. Related Data Home Medications Medication Instructions Recorded Confirmed montelukast [Singulair] 10 mg PO HS 01/05/20 04/03/21 valproic acid 750 mg PO Q12H 01/05/20 04/03/21 Pradaxa 150 mg PO Q12H 02/18/20 04/03/21 famotidine 20 mg tablet 20 mg PO Q12H 01/29/21 04/03/21 icosapent ethyl 1 gram capsule 2 g PO Q12H 01/29/21 04/03/21 lisinopril 10 mg tablet 10 mg PO DAILY 01/29/21 04/03/21 atorvastatin 10 mg tablet 10 mg PO HS 02/13/21 04/03/21 bictegravir 50 mg-emtricitabine 1 tablet PO HS 02/13/21 04/03/21 200 mg-tenofovir alafenam 25 mg tablet doravirine 100 mg tablet 100 mg PO HS 02/13/21 04/03/21 dulaglutide 0.75 mg/0.5 mL 0.75 mg SUBCUT WEEKLY 02/13/21 04/03/21 subcutaneous pen injector levothyroxine 100 mcg PO 0600 02/14/21 04/03/21 melatonin 10 mg PO HS 02/14/21 04/03/21 tizanidine 4 mg PO Q8H PRN 02/14/21 04/03/21 clonazepam 0.5 mg PO TID 04/03/21 04/03/21 ergocalciferol (vitamin D2) 50,000 unit PO WEEKLY 04/03/21 04/03/21 Allergies Allergy/AdvReac Type Severity Reaction Status Date / Time cephalexin [From Keflex] Allergy Intermediate Rash Verified 03/22/21 09:04 Review of Systems Review of Systems: CONSTITUTIONAL: Denies fever, chills, or sweats. EYES: Denies visual changes, redness, or discharge. ENT: Denies rhinorrhea, congestion, sore throat, or otalgia. CARDIOVASCULAR: Denies chest pain, palpitations, or edema. RESPIRATORY: Denies cough or dyspnea. GASTROINTESTINAL: Denies abdominal pain, nausea, vomiting, or diarrhea. GENITOURINARY: Denies dysuria or hematuria. SKIN: Denies rash or itching. MUSCULOSKELETAL: Denies back pain, joint pain, or myalgia. NEUROLOGIC: Denies headache, numbness, or weakness. PSYCHIATRIC: Denies anxiety or depression. 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 Chronic kidney disease, stage 3 Deep venous thrombosis Depression Diverticulitis Dyslipidemia Gastroesophageal reflux disease History of drug abuse in remission Human immunodeficiency virus Hypothyroidism Migraines Nicotine dependence Pneumonia Pulmonary embolism Schizophrenia Seizures Type 2 diabetes mellitus Surgical History Surgical History History of hand surgery Right hand. History of umbilical hernia repair (02/17/21) Primary repair of incarcerated umbilical hernia. Family History Family History Father Diabetes mellitus Heart disease High cholesterol Heart attack Mother Cancer Cervical cancer Sibling Brain cancer Other Cerebrovascular accident Hypertension Cancer Kidney disease Social History Social History Social History: Surrogate decision maker: Desiree Escalante, mother. Code status: Full code. Smoking packs per day: 1 Smoking cigarettes per day: 20.0 Years smoked: 22 Smoking pack-years: 22.00 Smoking status: Never smoker Tobacco type: cigare
--- NOTE | 2021-08-07 17:27 | PCRCNOTE ---
Arrived approx. 10 minutes ago to draw ABG; Pt. was not in the room and still not available.
[2021-08-07 17:43] LABS: Alveolar/Arterial O2 Gradient 27.6 mmHg; Base Excess ABG 0.3 mEq/l (+/-2.0); Fractional Inspired Oxygen 21 %; HCO3 ABG 24.1 mEq/l (22.0-26.0); Oxygen Content ABG 19.9 %vol (16.0-22.0); Oxygen Saturation ABG 96.1 % (95.0-100.0); Oxyhemoglobin 94.7 % THb (90.0-100.0); PCO2 ABG 36.4 mmHg (35.0-45.0); PO2 ABG 78.5 mmHg (80.0-100.0); PO2 FiO2 Ratio Arterial Blood 3.74 %; Total Hemoglobin 14.9 g/dL (12.0-18.0); pH ABG 7.438 (7.350-7.450)
[2021-08-07 17:44] LABS: Device ROOM AIR; Modified Allen's Test Pass; Site Drawn LEFT RADIAL
[2021-08-07 17:48] VITALS: PULSE 96
[2021-08-07] MEDS: METOPROLOL TARTRATE 50 MG TAB 25 MG PO (17:48)
[2021-08-07 18:24] LABS: Valproic Acid 49.8 ug/mL (50-120)
[2021-08-07 19:08] LABS: Troponin I < 0.012 ng/mL (0.000-0.034)
--- NOTE | 2021-08-07 20:00 | PM.IMHP ---
H&P: HPI History of Present Illness Date/Time: 08/07/21 20:00 Chief Complaint: Chest pain. Narrative: This is a 36-year-old male with multiple medical problems including hypertension, dyslipidemia, history of DVT and pulmonary embolism on long-term Pradaxa, seizures, anxiety, hypothyroidism, and HIV who presented to the emergency department earlier today via EMS for evaluation of chest pain. Earlier today while changing out a car battery he developed midsternal chest tightness/pressure diffusely across the chest associated with lightheadedness, sweats, shortness of breath, nausea, and vomiting. The chest discomfort radiate somewhat through the back and into the shoulders. It is reportedly worse with exertion and improved with rest. 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 Rose. He denies injuring himself and does not believe that he strained a muscle in his activities today. He also denies that his symptoms are similar to heartburn or GERD. He has no history of ulcers, pancreatitis, or gallbladder disease. He states compliance with his Pradaxa. Review of Systems Review of Systems: Twelve systems were reviewed with pertinent positives and negatives as per HPI. No fever, chills, sweats. No recent cold or flu symptoms. No exposure to COVID-19 to his knowledge. No racing heart or palpitations at this time however he has them frequently. No history of cardiac dysrhythmia. He denies orthopnea and PND. No diarrhea. Occasional mild edema in the legs but nothing significant. No calf pain or tenderness. His symptoms are not similar to when he had his DVT or PE. He has been walking with a cane recently due to pain in his back due to spinal stenosis at L4-L5. Reports pretty significant agoraphobia. No harmful thoughts. Except as documented, all other systems were reviewed and are negative. [facility] Past Medical History Medical History (Updated 08/08/21 @ 00:20 by Merary Fernando PA-C) Agoraphobia Anxiety Cellulitis of left leg (03/2021) Chronic anticoagulation For recurrent venous thromboembolism including DVT and PE. Chronic kidney disease, stage 2 (mild) Deep venous thrombosis Depression Diverticulitis Dyslipidemia Former smoker Gastroesophageal reflux disease History of drug abuse in remission Human immunodeficiency virus Hypothyroidism Migraines Pneumonia Pulmonary embolism Seizures Type 2 diabetes mellitus Hemoglobin A1c was 5.5% on 04/04/2021. Surgical History Surgical History History of hand surgery Right hand. History of umbilical hernia repair (02/17/21) Primary repair of incarcerated umbilical hernia. Family History Family History Father Diabetes mellitus Heart disease High cholesterol Heart attack Mother Cancer Cervical cancer Sibling Brain cancer Other Cerebrovascular accident Hypertension Cancer Kidney disease Social History Social History (Updated 08/08/21 @ 00:16 by Merary Fernando PA-C) Social History: Surrogate decision maker: Desiree Escalante, mother. Code status: Full code. Smoking packs per day: 1 Smoking cigarettes per day: 20.0 Years smoked: 22 Smoking pack-years: 22.00 Smoking status: Never smoker Tobacco type: cigarettes and e-cigarettes/vaping Smoking end date: 02/15/20 Additional smoking assessment comments: Occasionally vapes, 1.8 nicotine level. Alcohol intake: never Alcohol use details: Former heavy drinker. None in over 4 years. Substance use: former Substance use type: marijuana, crack/cocaine and methamphetamine Other substance usage details: Clean for over 1 year. Last use: 09/2019 Additional living arrangements comments: The patient lives with his mom in [place]. Additional occupation/education comments: [employer]
[2021-08-07 20:33] VITALS: BP 106/79; PULSE 80; RESP 21; O2SAT 98
[2021-08-07 22:24] LABS: Troponin I < 0.012 ng/mL (0.000-0.034)
--- NOTE | 2021-08-07 22:45 | PC.NURSE ---
Patient report received from AMRIK Roque in ED. All questions answered. Awaiting patient transport to [facility] - 7.
--- NOTE | 2021-08-07 23:00 | ADMGEN ---
This patient, Patrice Escalante, was admitted [facility] Patient oriented to hospital policies and general routines including ID bracelet, bed and alarms, visiting hours, pain management, procedures, bathroom and other care routines, personal items, smoking policy, room service/diet, and visiting hours. Information on how to activate the Rapid Response Team has been discussed. Patient/Family are encouraged to report perceived risks to care and to ask questions if they do not understand what they are told or what they should do.
[2021-08-07 23:15] VITALS: BMI 41.9
--- NOTE | 2021-08-07 23:47 | PC.NURSE ---
Patient reports increasing chest pain that radiates to left chest beneath breast area. VEDA Reagan notified and pain medication requested.
[2021-08-08] VITALS (15 sets, daily range): BP systolic 112–134; BP diastolic 58–89; PULSE 64–101; RESP 12–18; TEMP 36.3–37.4; O2SAT 96–99
--- NOTE | 2021-08-08 | EST_ITS ---
Patient Info Name: Patrice Escalante Age: 36 years : 1985 Gender: Male Ht: 77 in Wt: 350 lbs BSA: 3.00 m2 HR: 79 bpm BP: 110 / 57 mmHg Heart Rhythm: Sinus Rhythm Exam Date: 08/08/2021 11:30 AM Exam Location: [facility] Stress Patient Status: Inpatient Admit Date: 08/07/2021 Staff Ordering Physician: Merary Fernando PA-C Attending Provider: Charlotte Sanchez PA-C Exercise Technologist: Therese Verdugo CT Exercise Physician: Cal Kraft MD Exam Type: CA stress deneen w NM Study Info Indications R07.9 - Chest pain, unspecified A regadenoson stress test was performed. Summary 1. No arrhythmias were observed during the examination. 2. Transient atypical chest pain spontaneously resolved after Lexiscan administration. 3. No abnormal ST/T wave changes meeting strict criteria for myocardial ischemia with Lexiscan. 4. Please correlate with nuclear medicine images, reported separately. Protocol: Lexiscan Stress ECG Details Stage: REST Duration (min): 1 min : 3 sec HR (bpm): 81 SBP (mmHg): 110 DBP (mmHg): 57 Stage: REST Duration (min): 16 min : 44 sec HR (bpm): 88 SBP (mmHg): 110 DBP (mmHg): 57 Stage: STAGE 1 Duration (min): 1 min : 0 sec HR (bpm): 110 SBP (mmHg): 127 DBP (mmHg): 45 Stage: RECOVERY Duration (min): 1 min : 0 sec HR (bpm): 113 SBP (mmHg): 127 DBP (mmHg): 45 Stage: RECOVERY Duration (min): 2 min : 0 sec HR (bpm): 105 SBP (mmHg): 127 DBP (mmHg): 45 Stage: RECOVERY Duration (min): 3 min : 0 sec HR (bpm): 100 SBP (mmHg): 119 DBP (mmHg): 59 Stage: RECOVERY Duration (min): 3 min : 41 sec HR (bpm): 96 SBP (mmHg): 119 DBP (mmHg): 59 Rest HR: 88 bpm Peak HR: 117 bpm Rest Sys BP: 110 mmHg Peak Sys BP: 127 mmHg Max Pred HR: 183 bpm % Max Pred HR: 64 % Target HR: 156 bpm Max RPP: 14,859 bpm*mmHg Termination Reason: Completed protocol Cardiac Symptoms: Chest pain Total Time: 1 min : 0 sec Rest Pritchard BP: 57 mmHg Peak Pritchard BP: 45 mmHg Total Dose: 0.4 mg Resting ECG Normal sinus rhythm - normal ECG. Stress ECG No abnormal ST/T wave changes meeting strict criteria for myocardial ischemia with Lexiscan. Arrhythmias No arrhythmias were observed during the examination. Report Signatures
[2021-08-08] MEDS: HYDROcodone/acetaminophen (*CRX) 5-325 MG TABLET 1 TAB PO ×3 (00:36→15:23)
--- NOTE | 2021-08-08 00:36 | PC.NURSE ---
Pt rating CP at 5/10. 1 tablet hydrocodone administered. Will reassess pain in 30 minutes.
--- NOTE | 2021-08-08 06:10 | PC.NURSE ---
Patients home medications stored in secure safe at nurse's station in [facility]. Medications for HIV treatment sent to pharmacy for verification. Awaiting completion of verification for non-formulary drugs.
[2021-08-08] MEDS: LEVOTHYROXINE SODIUM 100 MCG TABLET PO (06:15)
--- NOTE | 2021-08-08 07:05 | PHAR ---
VERIFIED FROM [facility]: PRADAXA 150MG TAB, LISINOPRIL 10MG TAB, FAMOTIDINE 20MG TAAB, PANTOPRAZOLE 40MG TAB, BUPROPION 300MG XL TAB, VENLAFAXINE ER 150MG TAB, PIFELTRO 100MG TAB, ATORVASTATIN 10 MG TAB, BIKTARVY COMBO TAB, MONTELUKAST 10MG TAB, VASCEPA 1 GM TAB, AND VALPROIC ACID 250MG CAP. SENT BACK WITH ENTEROSTOMAL NURSE ON AM RUN TO [facility].
--- NOTE | 2021-08-08 07:35 | PC.NURSE ---
Patient report given to AMRIK Sylvester. All questions answered and care of patient transferred.
--- NOTE | 2021-08-08 07:41 | PC.NURSE ---
Per nuclear med, pt can have morning medication before the stress test.
[2021-08-08] MEDS: GABAPENTIN 300 MG CAPSULE PO ×3 (08:25→16:43)
[2021-08-08] MEDS: ASPIRIN 81 MG CHEWABLE TABLET PO (08:25)
[2021-08-08] MEDS: DABIGATRAN ETEXILATE 150 MG CAPSULE 1 EACH BY MOUTH (08:27)
[2021-08-08] MEDS: PANTOPRAZOLE 40 MG TABLET 1 EACH BY MOUTH (08:28)
[2021-08-08] MEDS: FAMOTIDINE 20 MG TABLET 1 EACH BY MOUTH (08:28)
[2021-08-08] MEDS: lisinopriL 10 MG TABLET 1 EACH BY MOUTH (08:28)
[2021-08-08] MEDS: VASCEPA 1 GM CAPSULE 2 EACH BY MOUTH (08:29)
[2021-08-08 08:37] LABS: Glucose Point of Care 114 mg/dl (65-105)
--- NOTE | 2021-08-08 10:45 | PC.NURSE ---
Patient to [facility] for stress test per wheelchair.
[2021-08-08 12:38] LABS: Glucose Point of Care 164 mg/dl (65-105)
[2021-08-08 17:00] LABS: Glucose Point of Care 134 mg/dl (65-105)
--- NOTE | 2021-08-08 17:32 | PM.DS ---
DS: Admitting Diagnosis Discharge Date 08/08/2020 Admitting Diagnosis Chest pain DS: Discharge Diagnosis Discharge Diagnosis (1) Chest pain: Qualifiers: Chest pain type: unspecified Qualified Code(s): R07.9 - Chest pain, unspecified Code(s): R07.9 - Chest pain, unspecified Status: Acute Assessment and Plan: Atypical chest pain described as diffuse tightness with intermittent throbbing. Troponins negative x3. EKG reviewed with no ST abnormalities. He is established with pony trimmer, Dr. Rose and was scheduled for outpatient stress test due to complaints of chronic chest pain. Underwent Lexiscan nuclear medicine stress test which showed no evidence myocardial ischemia or infarct. Chest pain improved significantly. I spoke with his pony trimmer's office who recommends prompt outpatient follow-up. Results of stress test will be forwarded to them. (2) Anxiety: Code(s): F41.9 - Anxiety disorder, unspecified Status: Chronic Assessment and Plan: May be contributing to chest pain. Continue bupropion. (3) Chronic anticoagulation: Code(s): Z79.01 - manager terminal (current) use of anticoagulants Status: Chronic Assessment and Plan: Taken for recurrent VTE. Continue Pradaxa. (4) Gastroesophageal reflux disease: Code(s): K21.9 - Gastro-esophageal reflux disease without esophagitis Status: Acute Assessment and Plan: Patient denies that his pain is similar to GERD. Continue pantoprazole. (5) Human immunodeficiency virus: Code(s): B20 - Human immunodeficiency virus [HIV] disease Status: Chronic Assessment and Plan: Continue antiviral regimen. (6) Hypothyroidism: Code(s): E03.9 - Hypothyroidism, unspecified Status: Chronic Assessment and Plan: Continue levothyroxine. TSH was normal in March 2021. (7) Hypertension: Qualifiers: Hypertension type: essential hypertension Qualified Code(s): I10 - Essential (primary) hypertension Code(s): I10 - Essential (primary) hypertension Status: Chronic Assessment and Plan: Blood pressures reviewed and were well controlled. Continue antihypertensive regimen. (8) Type 2 diabetes mellitus: Code(s): E11.9 - Type 2 diabetes mellitus without complications Status: Acute Assessment and Plan: Most recent hemoglobin A1c was 5.5%. Blood sugars monitored closely during hospital stay managed with signs scale insulin. Continue dulaglutide. (9) Suspected sleep apnea: Code(s): R29.818 - Other symptoms and signs involving the nervous system Status: Acute Assessment and Plan: Patient reports that he will wake up at night occasionally gasping and is a heavy snorer. He had an ApneaLink performed at last hospitalization in March 2021 that showed high probability. He needs to follow-up with his PCP for a formal sleep study. Discussed this with him. 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 On presentation to the emergency department, he was mildly tachycardic with additional vital signs stable CBC and BMP unremarkable, troponin negative, CXR with no acute cardiopulmonary findings, and CTA with no evidence of PE. He was admitted to the hospitalist service for further evaluation management. Please see above for further details. He had a negative stress test and had improvement in his chest pain. I discussed with his pony trimmer office who recommended outpatient follow-up. Given his overall improvement,
== END 2021-08-08 18:02 | disposition home or self-care (01) ==
LOC: ANHED 19:51 → ANHCPC 08-08 07:35
PROVIDERS: Emergency Medicine; Physician Assistant; Admitting Provider Internal Medicine; Emergency Provider Emergency Medicine; PCP Nurse Practitioner; Visit Provider Hospitalist
DX: R07.89 Other chest pain (principal); Z21 Asymptomatic human immunodeficiency virus [HIV] infection status; F41.9 Anxiety disorder, unspecified; K21.9 Gastro-esophageal reflux disease without esophagitis; R06.02 Shortness of breath; I12.9 Hypertensive chronic kidney disease with stage 1 through stage 4 chronic kidney disease, or unspecified chronic kidney disease; E11.22 Type 2 diabetes mellitus with diabetic chronic kidney disease; N18.2 Chronic kidney disease, stage 2 (mild); E78.5 Hyperlipidemia, unspecified; E03.9 Hypothyroidism, unspecified; Z86.711 Personal history of pulmonary embolism; Z79.01 Long term (current) use of anticoagulants; Z86.718 Personal history of other venous thrombosis and embolism
CPT/HCPCS: 36415; 36600; 71046; 71275; 78452; 80048; 80164; 82805; 82948; 84484; 85025; 85610; 85730; 93005; 93017; 99285; A9270; A9502; G0378; J2785; Q9967